=== PATIENT | female | born 1975 | race Two or more races ===

== ENCOUNTER 2017-08-25 16:56 | Emergency (ER) | payer OTHER, SELFPAY ==
[2017-08-25] MEDS ORDERED: Ondansetron 4 MG/2 ML SDV IVPUSH ONE (17:27)
[2017-08-25] MEDS ORDERED: Sodium Chloride 0.9% 1,000 ML IV ONE (17:27)
[2017-08-25] MEDS ORDERED: Ketorolac 30 MG/ML SDV IVPUSH ONE (17:27)
--- NOTE | 2017-08-25 17:29 | EDM.PDOC ---
<Christian Boston - Last Filed: 08/25/17 17:27> ED HPI GENERAL MEDICAL PROBLEM - General Chief Complaint: Abdominal Pain Stated Complaint: LOWER ABD PAIN Time Seen by Provider: 08/25/17 20:24 Source of Information: Reports: Patient - History of Present Illness INITIAL COMMENTS - FREE TEXT/NARRATIVE: HISTORY AND PHYSICAL: History of present illness: [Patient with left lower quadrant pain right 6 out of 10 nonradiating for 1 week increasing in severity some decreased appetite and nausea no vomiting fever chills sweats No chest pain shortness breath headache dizziness palpitation no bowel or urine symptoms ] Review of systems: As per history of present illness and below otherwise all systems reviewed and negative. Past medical history: As per history of present illness and as reviewed below otherwise noncontributory. Surgical history: As per history of present illness and as reviewed below otherwise noncontributory. Social history: No reported history of drug or alcohol abuse. Family history: As per history of present illness and as reviewed below otherwise noncontributory. Physical exam: HEENT: Atraumatic, normocephalic, pupils reactive, negative for conjunctival pallor or scleral icterus, mucous membranes moist, throat clear, neck supple, nontender, trachea midline. Lungs: Clear to auscultation, breath sounds equal bilaterally, chest nontender. Heart: S1S2, regular, negative for clicks, rubs, or JVD. Abdomen: Soft, nondistended, tender in left lower quadrant with deep palpation no guarding or rebound. Negative for masses or hepatosplenomegaly. Negative for costovertebral tenderness. Pelvis: Stable nontender. Genitourinary: Deferred. Rectal: Deferred. Extremities: Atraumatic, negative for cords or calf pain. Neurovascular unremarkable. Neuro: Awake, alert, oriented. Cranial nerves II through XII unremarkable. Cerebellum unremarkable. Motor and sensory unremarkable throughout. Exam nonfocal. Diagnostics: [CBC CMP UA lipase UA hCG CT abdomen pelvis with contrast ] Therapeutics: [Liter normal saline bolus Zofran 8 mg IV Toradol 30 mg IV ] Impression: [ abdominal pain ] Definitive disposition and diagnosis as appropriate pending reevaluation and review of above. - Related Data Allergies Allergy/AdvReac Type Severity Reaction Status Date / Time Penicillins Allergy Other Verified 02/29/16 19:15 Phenothiazines Allergy Other Verified 02/29/16 19:15 Home Meds: Home Meds Omeprazole 1 tab PO BID 02/10/16 [History] Ondansetron HCl [Zofran] 1 tab PO ASDIRECTED PRN 02/10/16 [History] Sertraline HCl 1 tab PO DAILY 02/10/16 [History] Acetaminophen/oxyCODONE [Percocet 325-5 MG] 2 tab PO Q4H PRN #60 tablet [Rx] Cyclobenzaprine [Flexeril] 5 mg PO TID PRN #30 tablet 03/02/16 [Rx] Omeprazole 20 mg PO BIDAC cap.cr 03/02/16 [Rx] Ondansetron [Zofran ODT] 4 mg PO Q4H PRN #30 tab.dis 03/02/16 [Rx] Polyethylene Glycol 3350 [MiraLAX] 17 gm PO DAILY #30 packet 03/02/16 [Rx] Past Medical History HEENT History: Reports: Sinusitis Cardiovascular History: Reports: None Respiratory History: Reports: None Other Respiratory History: had asthma as a child but outgrew it Gastrointestinal History: Reports: Gastritis, GERD, PUD, Other (See Below) Genitourinary History: Reports: None [employer] History: Reports: 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 History: Reports: Fracture Other 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 History: hx of fx thumb Neurological History: Reports: None Psychiatric History: Reports: Anxiety, Depression Endocrine/Metabolic History: Reports: Obesity/BMI 30+ Hematologic History: Reports: None Immunologic History: Reports: None Oncologic (Cancer) History: Reports: None Dermatologic History: Reports: None - Infectious Disease History Infectious Disease History: Reports: Chicken Pox, Measles - Past Surgical History Head Surgeries/Procedures: Reports: None HEENT Surgical History: Reports: Oral Surgery, Tonsillectomy Cardiovascular Surgical History: Reports: None Respiratory Surgical History: Reports: None Female Surgical History: Reports: Section Endocrine Surgical History: Reports: None Neurological Surgical History: Reports: None 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 Surgical History: Reports: None Oncologic Surgical History: Reports: None Dermatological Surgical History: Reports: None - History Comment History Comment: etoh "occasional" Social & Family History - Family History Family Medical History: Noncontributory - Tobacco Use Smoking Status *Q: Never Smoker Second Hand Smoke Exposure: No - Caffeine Use Caffeine Use: Reports: None - Alcohol Use Days Per Week of Alcohol Use: 1 Number of Drinks Per Day: 2 Total Drinks Per Week: 2 - Recreational Drug Use Recreational Drug Use: No Course - Vital Signs Last Recorded V/S: Last Vital Signs Temp 37.0 C 08/25/17 17:25 Pulse 97 08/25/17 17:25 Resp 18 08/25/17 17:25 BP 146/79 H 08/25/17 17:25 Pulse Ox 98 08/25/17 17:25 - Orders/Labs/Meds Orders: Active Orders 24 hr Category Date Time Status Abdomen Pelvis w Cont [CT] Stat Exams 08/25/17 17:29 Taken HCG QUALITATIVE,URINE [URCHEM] Stat Lab 08/25/17 18:24 Ordered UA W/MICROSCOPIC [URIN] Stat Lab 08/25/17 18:24 Ordered Labs: Laboratory Tests 08/25/17 08/25/17 08/25/17 Range/Units 17:31 17:31 17:31 WBC 8.39 (4.0-11.0) K/uL RBC 4.65 (4.30-5.90) M/uL Hgb 13.4 (12.0-16.0) g/dL Hct 40.2 (36.0-46.0) % MCV 86.5 (80.0-98.0) fL MCH 28.8 (27.0-32.0) pg MCHC 33.3 (31.0-37.0) g/dL RDW Std Deviation 41.6 (28.0-62.0) fl RDW Coeff of Tanvi 13 (11.0-15.0) % Plt Count 329 (150-400) K/uL MPV 8.10 (7.40-12.00) fL Neut % (Auto) 40.9 L (48.0-80.0) % Lymph % (Auto) 49.3 H (16.0-40.0) % [place] % (Auto) 7.2 (0.0-15.0) % Eos % (Auto) 2.0 (0.0-7.0) % Baso % (Auto) 0.6 (0.0-1.5) % Neut # (Auto) 3.4 (1.4-5.7) K/uL Lymph # (Auto) 4.1 H (0.6-2.4) K/uL [place] # (Auto) 0.6 (0.0-0.8) K/uL Eos # (Auto) 0.2 (0.0-0.7) K/uL Baso # (Auto) 0.1 (0.0-0.1) K/uL Nucleated RBC % 0.0 /100WBC Nucleated RBCs # 0 K/uL Sodium 140 (136-145) mmol/L Potassium 4.1 (3.5-5.1) mmol/L Chloride 104 (98-107) mmol/L Carbon Dioxide 27.5 (21.0-32.0) mmol/L BUN 11 (7.0-18.0) mg/dL Creatinine 0.8 (0.6-1.0) mg/dL Est Cr Clr Drug Dosing TNP Estimated GFR (MDRD) > 60.0 ml/min Glucose 95 (74-106) mg/dL Calcium 8.7 (8.5-10.1) mg/dL Total Bilirubin 0.3 (0.2-1.0) mg/dL AST 52 H (15-37) IU/L ALT 92 H (14-63) IU/L Alkaline Phosphatase 109 (46-116) U/L Troponin I < 0.050 (0.000-0.056) ng/mL Total Protein 8.0 (6.4-8.2) g/dL Albumin 3.8 (3.4-5.0) g/dL Globulin 4.2 H (2.0-3.5) g/dL Albumin/Globulin Ratio 0.9 L (1.3-2.8) Lipase 74 (73-393) U/L Urine Color Urine Appearance Urine pH (5.0-8.0) Ur Specific Gur[place] (1.001-1.035) Urine Protein (NEGATIVE) mg/dL Urine Glucose (UA) (NEGATIVE) mg/dL Urine Ketones (NEGATIVE) mg/dL Urine Occult Blood (NEGATIVE) Urine Nitrite (NEGATIVE) Urine Bilirubin (NEGATIVE) Urine Urobilinogen (<2.0) EU/dL Ur Leukocyte Esterase (NEGATIVE) Urine RBC (0-2/HPF) Urine WBC (0-5/HPF) Ur Epithelial Cells (NONE-FEW) Urine Bacteria (NEGATIVE) Urine HCG, Qual (NEGATIVE) 08/25/17 08/25/17 Range/Units 18:24 18:24 WBC (4.0-11.0) K/uL RBC (4.30-5.90) M/uL Hgb (12.0-16.0) g/dL Hct (36.0-46.0) % MCV (80.0-98.0) fL MCH (27.0-32.0) pg MCHC (31.0-37.0) g/dL RDW Std Deviation (28.0-62.0) fl RDW Coeff of Tanvi (11.0-15.0) % Plt Count (150-400) K/uL MPV (7.40-12.00) fL Neut % (Auto) (48.0-80.0) % Lymph % (Auto) (16.0-40.0) % [place] % (Auto) (0.0-15.0) % Eos % (Auto) (0.0-7.0) % Baso % (Auto) (0.0-1.5) % Neut # (Auto) (1.4-5.7) K/uL Lymph # (Auto) (0.6-2.4) K/uL [place] # (Auto) (0.0-0.8) K/uL Eos # (Auto) (0.0-0.7) K/uL Baso # (Auto) (0.0-0.1) K/uL Nucleated RBC % /100WBC Nucleated RBCs # K/uL Sodium (136-145) mmol/L Potassium (3.5-5.1) mmol/L Chloride (98-107) mmol/L Carbon Dioxide (21.0-32.0) mmol/L BUN (7.0-18.0) mg/dL Creatinine (0.6-1.0) mg/dL Est Cr Clr Drug Dosing Estimated GFR (MDRD) ml/min Glucose (74-106) mg/dL Calcium (8.5-10.1) mg/dL Total Bilirubin (0.2-1.0) mg/dL AST (15-37) IU/L ALT (14-63) IU/L Alkaline Phosphatase (46-116) U/L Troponin I (0.000-0.056) ng/mL Total Protein (6.4-8.2) g/dL Albumin (3.4-5.0) g/dL Globulin (2.0-3.5) g/dL Albumin/Globulin Ratio (1.3-2.8) Lipase (73-393) U/L Urine Color YELLOW Urine Appearance CLEAR Urine pH 6.0 (5.0-8.0) Ur Specific [place] 1.015 (1.001-1.035) Urine Protein NEGATIVE (NEGATIVE) mg/dL Urine Glucose (UA) NEGATIVE (NEGATIVE) mg/dL Urine Ketones NEGATIVE (NEGATIVE) mg/dL Urine Occult Blood NEGATIVE (NEGATIVE) Urine Nitrite NEGATIVE (NEGATIVE) Urine Bilirubin NEGATIVE (NEGATIVE) Urine Urobilinogen 0.2 (<2.0) EU/dL Ur Leukocyte Esterase SMALL (NEGATIVE) Urine RBC 0-1 (0-2/HPF) Urine WBC 0-1 (0-5/HPF) Ur Epithelial Cells RARE (NONE-FEW) Urine Bacteria RARE (NEGATIVE) Urine HCG, Qual NEGATIVE (NEGATIVE) Meds: Medications Discontinued Medications Generic Name Dose Route Start Last Admin Trade Name Freq PRN Reason Stop Dose Admin Sodium Chloride 1,000 mls @ 999 mls/hr 08/25/17 17:27 08/25/17 18:04 Normal Saline IV 08/25/17 18:27 999 mls/hr STAT ONE Administration Iopamidol 100 ml 08/25/17 19:09 08/25/17 19:11 Isovue Multipack-370 (76%) IVPUSH 08/25/17 19:10 100 ml ONETIME STA Administration Ketorolac Tromethamine 30 mg 08/25/17 17:27 08/25/17 18:04 Toradol IVPUSH 08/25/17 17:28 30 mg ONETIME ONE Administration Ondansetron HCl 8 mg 08/25/17 17:27 08/25/17 18:06 Zofran IVPUSH 08/25/17 17:28 8 mg ONETIME ONE Administration Ondansetron HCl Confirm 08/25/17 18:05 08/25/17 18:57 Zofran Administered 08/25/17 18:06 Not Given Dose 4 mg .ROUTE .STK-MED ONE Departure - Departure Disposition: Home, Self-Care 01 Clinical Impression: Abdominal pain Qualifiers: Abdominal location: right upper quadrant Qualified Code(s): R10.11 - Right upper quadrant pain - Discharge Information Referrals: PCP,None [Primary Care Provider] - Forms: ED Department Discharge Additional Instructions: The following information is given to patients seen in the emergency department who are being discharged to home. This information is to outline your options for follow-up care. We provide all patients seen in our emergency department with a follow-up referral. The need for follow-up, as well as the timing and circumstances, are variable depending upon the specifics of your emergency department visit. If you don't have a primary care physician on staff, we will provide you with a referral. We always advise you to contact your personal physician following an emergency department visit to inform them of the circumstance of the visit and for follow-up with them and/or the need for any referrals to a consulting specialist. The emergency department will also refer you to a specialist when appropriate. This referral assures that you have the opportunity for followup care with a specialist. All of these measure are taken in an effort to provide you with optimal care, which includes your followup. Under all circumstances we always encourage you to contact your private physician who remains a resource for coordinating your care. When calling for followup care, please make the office aware that this follow-up is from your recent emergency room visit. If for any reason you are refused follow-up, please contact the [facility] emergency department at and asked to speak to the emergency department charge nurse. [facility] Specialty Care - General Surgery Professional [address], [address] [place] [address] Follow-up primary medical doctor follow-up Gen. surgery above call to schedule appointment as needed as discussed and return as needed as discussed <Baldemar Ansari - Last Filed: 08/25/17 20:24> ED HPI GENERAL MEDICAL PROBLEM - History of Present Illness INITIAL COMMENTS - FREE TEXT/NARRATIVE: Patient's emergency department course has been unremarkable all of her diagnostics have been negative including CT of her abdomen and pelvis patient be discharged home with diagnosis of abdominal pain she was given general surgery for follow-up as well as her private medical doctor she's return as needed as discussed ED ROS GENERAL - Review of Systems Review Of Systems: ROS reveals no pertinent complaints other than HPI. ED EXAM, GENERAL - Physical Exam Exam: See Below (See dictation) Departure - Departure Time of Disposition: 20:23 Condition: Good
[2017-08-25] MEDS ORDERED: Ondansetron 4 MG/2 ML SDV ONE (18:05)
[2017-08-25 18:07] LABS: CHLORIDE,CL 104 mmol/L (98-107); SODIUM,NA 140 mmol/L (136-145)
[2017-08-25] MEDS ORDERED: Iopamidol 755 MG/ML 500 ML Multipack Bottle IVPUSH STA (19:09)
[2017-08-25 20:52] VITALS: BP 132/74
--- NOTE | 2017-08-26 08:22 | CT ---
EXAM DATE: 08/25/17 PATIENT'S AGE: 42 [facility]: [facility] Facility: [place], [place] Site . Site : [id number] Study: CT Abdomen/Pelvis WITH [id number]/13/2018 7:10:46 PM Ordering Physician: Tri Gonzales Final Report: INDICATION: LLQ pain, nausea, gallbladder removed TECHNIQUE: CT abdomen and pelvis acquired with IV contrast. COMPARISON: None FINDINGS: Lower chest: Unremarkable. Liver: Diffuse fatty infiltration of the liver. Spleen: Unremarkable. Pancreas: Unremarkable. Gallbladder and bile ducts: Cholecystectomy changes Kidneys: Unremarkable. Adrenal glands: Unremarkable. GI tract: Unremarkable. Appendix is normal. Vascular structures: Negative. No sign of aneurysm. Lymph nodes: Unremarkable. Miscellaneous: Unremarkable. No free air or significant free fluid. Pelvic Organs: Unremarkable. Bones: Unremarkable for age. IMPRESSION: No acute abnormality of the abdomen and pelvis. Dictated by Jac Dela Cruz MD @ 08/25/2017 7:24:41 PM Please note that all CT scans at this facility use dose modulation, iterative reconstruction, and/or weight-based dosing when appropriate to reduce radiation dose to as low as reasonably achievable. Dictated by: Jac Dela Cruz MD @ 08/25/2017 19:24:54 (Electronic Signature) Report Signed by Proxy. [facility]
== END 2017-08-25 20:40 | disposition home or self-care (01) ==
LOC: MW.ED 16:56
DX: R10.814 Left lower quadrant abdominal tenderness (principal); R10.11 Right upper quadrant pain; E66.9 Obesity, unspecified; Z88.0 Allergy status to penicillin; Z88.8 Allergy status to other drugs, medicaments and biological substances; Z79.899 Other long term (current) drug therapy
CPT/HCPCS: 36415; 74177; 80053; 81001; 81025; 83690; 84484; 85025; J1885; J2405; J7040; Q9967; 96361; 96374; 96375; 99283; 99284-25

== ENCOUNTER 2018-11-08 02:24 | Emergency (ER) | payer SELFPAY ==
[2018-11-08 02:38] VITALS: BP 157/91
[2018-11-08] MEDS ORDERED: Benzocaine 20% Topical Spray UD MUCMEM ONE (02:51)
[2018-11-08] MEDS ORDERED: Lidocaine 2% Viscous Solution 15 ML Cup PO ONE (02:51)
[2018-11-08 03:24] LABS: CHLORIDE,CL 104 mmol/L (98-107); SODIUM,NA 141 mmol/L (136-145)
--- NOTE | 2018-11-08 04:10 | EDM.PDOC ---
ED HPI GENERAL MEDICAL PROBLEM - General Chief Complaint: ENT Problem Stated Complaint: SINUS INFECTION Time Seen by Provider: 11/08/18 04:10 - History of Present Illness INITIAL COMMENTS - FREE TEXT/NARRATIVE: HISTORY AND PHYSICAL: History of present illness: Patient's 43-year-old white female presents with concern of sinus congestion and pain dental pain and bilateral ear pain she denies fevers chills nausea vomiting or other complaints Review of systems: As per history of present illness and below otherwise all systems reviewed and negative. Past medical history: As per history of present illness and as reviewed below otherwise noncontributory. Surgical history: As per history of present illness and as reviewed below otherwise noncontributory. Social history: No reported history of drug or alcohol abuse. Family history: As per history of present illness and as reviewed below otherwise noncontributory. Physical exam: HEENT: Atraumatic, normocephalic, pupils reactive, negative for conjunctival pallor or scleral icterus, mucous membranes moist, throat clear, neck supple, nontender, trachea midline. Tenderness to percussion over maxillary and frontal sinusitis Lungs: Clear to auscultation, breath sounds equal bilaterally, chest nontender. Heart: S1S2, regular, negative for clicks, rubs, or JVD. Abdomen: Soft, nondistended, nontender. Negative for masses or hepatosplenomegaly. Negative for costovertebral tenderness. Pelvis: Stable nontender. Genitourinary: Deferred. Rectal: Deferred. Extremities: Atraumatic, negative for cords or calf pain. Neurovascular unremarkable. Neuro: Awake, alert, oriented. Cranial nerves II through XII unremarkable. Cerebellum unremarkable. Motor and sensory unremarkable throughout. Exam nonfocal. Diagnostics: None Therapeutics: None Impression: #1 dentalgia #2 otalgia #3 sinusitis Definitive disposition and diagnosis as appropriate pending reevaluation and review of above. head/face/teeth Pain Score (Numeric/FACES): 10 - Related Data Allergies Allergy/AdvReac Type Severity Reaction Status Date / Time codeine Allergy Abdominal Verified 11/08/18 02:34 Pain Penicillins Allergy Other Verified 11/08/18 02:33 Phenothiazines Allergy Other Verified 11/08/18 02:33 Home Meds: Home Meds Sertraline HCl 25 mg PO DAILY 02/18/18 [History] metFORMIN [Glucophage] 500 mg BID 02/18/18 [History] Past Medical History HEENT History: Reports: Sinusitis Cardiovascular History: Reports: None Respiratory History: Reports: None Other Respiratory History: had asthma as a child but outgrew it Gastrointestinal History: Reports: Gastritis, GERD, PUD, Other (See Below) Genitourinary History: Reports: None [employer] LEAD History: Reports: 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 History: Reports: Fracture Other 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 History: hx of fx thumb Neurological History: Reports: None Psychiatric History: Reports: Anxiety, Depression Endocrine/Metabolic History: Reports: Obesity/BMI 30+ Hematologic History: Reports: None Immunologic History: Reports: None Oncologic (Cancer) History: Reports: None Dermatologic History: Reports: None - Infectious Disease History Infectious Disease History: Reports: Chicken Pox - Past Surgical History Head Surgeries/Procedures: Reports: None HEENT Surgical History: Reports: Oral Surgery, Tonsillectomy Cardiovascular Surgical History: Reports: None Respiratory Surgical History: Reports: None GI Surgical History: Reports: Appendectomy, Cholecystectomy Female Surgical History: Reports: Section Endocrine Surgical History: Reports: None Neurological Surgical History: Reports: None 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 Surgical History: Reports: None Oncologic Surgical History: Reports: None Dermatological Surgical History: Reports: None - History Comment History Comment: etoh "occasional" Social & Family History - Family History Family Medical History: Noncontributory - Tobacco Use Smoking Status *Q: Never Smoker - Caffeine Use Caffeine Use: Reports: None - Recreational Drug Use Recreational Drug Use: No ED ROS GENERAL - Review of Systems Review Of Systems: ROS reveals no pertinent complaints other than HPI. ED EXAM, GENERAL - Physical Exam Exam: See Below Course - Vital Signs Last Recorded V/S: Last Vital Signs Temp 36.4 C 11/08/18 02:35 Pulse 80 11/08/18 02:35 Resp 16 11/08/18 02:35 BP 157/91 H 11/08/18 02:35 Pulse Ox 97 11/08/18 02:35 - Orders/Labs/Meds Labs: Laboratory Tests 11/08/18 11/08/18 Range/Units 02:57 02:57 WBC 7.16 (4.0-11.0) K/uL RBC 4.28 L (4.30-5.90) M/uL Hgb 12.4 (12.0-16.0) g/dL Hct 38.1 (36.0-46.0) % MCV 89.0 (80.0-98.0) fL MCH 29.0 (27.0-32.0) pg MCHC 32.5 (31.0-37.0) g/dL RDW Std Deviation 42.3 (28.0-62.0) fl RDW Coeff of Tanvi 13 (11.0-15.0) % Plt Count 276 (150-400) K/uL MPV 8.20 (7.40-12.00) fL Neut % (Auto) 30.5 L (48.0-80.0) % Lymph % (Auto) 59.1 H (16.0-40.0) % Johnson % (Auto) 6.0 (0.0-15.0) % Eos % (Auto) 3.8 (0.0-7.0) % Baso % (Auto) 0.6 (0.0-1.5) % Neut # (Auto) 2.2 (1.4-5.7) K/uL Lymph # (Auto) 4.2 H (0.6-2.4) K/uL Johnson # (Auto) 0.4 (0.0-0.8) K/uL Eos # (Auto) 0.3 (0.0-0.7) K/uL Baso # (Auto) 0.0 (0.0-0.1) K/uL Nucleated RBC % 0.0 /100WBC Nucleated RBCs # 0 K/uL Sodium 141 (136-145) mmol/L Potassium 3.9 (3.5-5.1) mmol/L Chloride 104 (98-107) mmol/L Carbon Dioxide 29.6 (21.0-32.0) mmol/L BUN 15 (7.0-18.0) mg/dL Creatinine 0.8 (0.6-1.0) mg/dL Est Cr Clr Drug Dosing 76.55 mL/min Estimated GFR (MDRD) > 60.0 ml/min Glucose 125 H (74-106) mg/dL Calcium 8.8 (8.5-10.1) mg/dL Total Bilirubin 0.2 (0.2-1.0) mg/dL AST 25 (15-37) IU/L ALT 59 (14-63) IU/L Alkaline Phosphatase 89 (46-116) U/L Total Protein 6.8 (6.4-8.2) g/dL Albumin 3.4 (3.4-5.0) g/dL Globulin 3.4 (2.6-4.0) g/dL Albumin/Globulin Ratio 1.0 (0.9-1.6) Meds: Medications Discontinued Medications Generic Name Dose Route Start Last Admin Trade Name Elmo PRN Reason Stop Dose Admin Benzocaine 2 each 11/08/18 02:51 11/08/18 03:04 Hurricaine One 20% MUCMEM 11/08/18 02:52 2 each ONETIME ONE Administration Lidocaine HCl 15 ml 11/08/18 02:51 11/08/18 03:04 Xylocaine 2% Viscous PO 11/08/18 02:52 15 ml ONETIME ONE Administration Departure - Departure Time of Disposition: 04:08 Disposition: Home, Self-Care 01 Condition: Good Clinical Impression: Sinusitis, Otalgia, Dentalgia - Discharge Information Referrals: PCP,None [Primary Care Provider] - Additional Instructions: The following information is given to patients seen in the emergency department who are being discharged to home. This information is to outline your options for follow-up care. We provide all patients seen in our emergency department with a follow-up referral. The need for follow-up, as well as the timing and circumstances, are variable depending upon the specifics of your emergency department visit. If you don't have a primary care physician on staff, we will provide you with a referral. We always advise you to contact your personal physician following an emergency department visit to inform them of the circumstance of the visit and for follow-up with them and/or the need for any referrals to a consulting specialist. The emergency department will also refer you to a specialist when appropriate. This referral assures that you have the opportunity for followup care with a specialist. All of these measure are taken in an effort to provide you with optimal care, which includes your followup. Under all circumstances we always encourage you to contact your private physician who remains a resource for coordinating your care. When calling for followup care, please make the office aware that this follow-up is from your recent emergency room visit. If for any reason you are refused follow-up, please contact the [facility] emergency department at and asked to speak to the emergency department charge nurse. Bactrim as prescribed follow-up primary medical doctor return as needed as discussed follow-up dentist as discussed
== END 2018-11-08 04:27 | disposition home or self-care (01) ==
LOC: MW.ED 02:24
DX: J32.9 Chronic sinusitis, unspecified (principal); F41.9 Anxiety disorder, unspecified; F32.9 Major depressive disorder, single episode, unspecified; Z88.5 Allergy status to narcotic agent; Z88.0 Allergy status to penicillin; Z88.8 Allergy status to other drugs, medicaments and biological substances; Z79.899 Other long term (current) drug therapy; Z79.84 Long term (current) use of oral hypoglycemic drugs
CPT/HCPCS: 36415; 80053; 85025; 99284; A9270; 99282

== ENCOUNTER 2019-08-03 12:14 | Emergency (ER) | payer SELFPAY ==
[2019-08-03] MEDS ORDERED: predniSONE 20 MG Tab PO ONE (12:38)
[2019-08-03] MEDS ORDERED: diphenhydrAMINE 50 MG Cap PO ONE (12:38)
[2019-08-03] MEDS ORDERED: Ondansetron 4 MG Tab PO ONE (12:51)
--- NOTE | 2019-08-03 12:51 | EDM.PDOC ---
ED HPI GENERAL MEDICAL PROBLEM - General Chief Complaint: Allergic Reaction Stated Complaint: ALLERGIC REACTION Time Seen by Provider: 08/03/19 12:15 Source of Information: Reports: Patient History Limitations: Reports: No Limitations - History of Present Illness INITIAL COMMENTS - FREE TEXT/NARRATIVE: 44-year-old female with history of allergic reaction to penicillin presents with pruritus to bilateral hands and fingers, left ear, along with nausea after handling her sons penicillin medication. She denies shortness of breath, throat closing sensation, wheezing. Symptoms started today. She also feels like she may have a panic attack. Denies chest pain, shortness of breath, abdominal pain. ROS: A 10-point review of systems, other than pertinent positives and negatives as stated per HPI, is otherwise negative PHYSICAL EXAM General: AOx4, GCS = 15, No distress, anxious HEENT: dry mucous membrane Skin: Vitiligo noted to the left face. Neck: supple, no meningismus, no Kernig or Brudzinski Cardiac: S1S2 RRR Respiratory: CTAB, no crackles or rales, no wheezing Abdomen: Soft, nontender, no rebound or guarding, nondistended, no pulsatile mass. Back: nontender 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: NVI distally, no deformity Neuro: No focal deficits, CN 2 - 12 WNL. MEDICAL DECISION MAKING: I reviewed the patients past medical records, lab and radiographic findings. I discussed the case with family members. My differential diagnosis included: Allergic reaction, panic attack. Generalized Pain Score (Numeric/FACES): 5 - Related Data Allergies Allergy/AdvReac Type Severity Reaction Status Date / Time codeine Allergy Abdominal Verified 08/03/19 12:19 Pain Penicillins Allergy Other Verified 08/03/19 12:19 Phenothiazines Allergy Other Verified 08/03/19 12:19 Home Meds: Home Meds metFORMIN [Glucophage] 500 mg PO BID 02/18/18 [History] PARoxetine HCL [Paroxetine HCl] 40 mg PO DAILY 08/03/19 [History] Past Medical History HEENT History: Reports: Sinusitis Cardiovascular History: Reports: None Respiratory History: Reports: None Other Respiratory History: had asthma as a child but outgrew it Gastrointestinal History: Reports: Gastritis, GERD, PUD Genitourinary History: Reports: None 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: 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 History: Reports: Fracture Other 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 History: hx of fx thumb Neurological History: Reports: None Psychiatric History: Reports: Anxiety, Depression Endocrine/Metabolic History: Reports: Diabetes, Type II, Obesity/BMI 30+ Hematologic History: Reports: None Immunologic History: Reports: None Oncologic (Cancer) History: Reports: None Dermatologic History: Reports: None - Infectious Disease History Infectious Disease History: Reports: None - Past Surgical History Head Surgeries/Procedures: Reports: None HEENT Surgical History: Reports: Oral Surgery, Tonsillectomy Cardiovascular Surgical History: Reports: None Respiratory Surgical History: Reports: None GI Surgical History: Reports: Appendectomy, Cholecystectomy Female Surgical History: Reports: Section Endocrine Surgical History: Reports: None Neurological Surgical History: Reports: None 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 Surgical History: Reports: None Oncologic Surgical History: Reports: None Dermatological Surgical History: Reports: None - History Comment History Comment: etoh "occasional" Social & Family History - Family History Family Medical History: Noncontributory - Tobacco Use Smoking Status *Q: Never Smoker Second Hand Smoke Exposure: No - Caffeine Use Caffeine Use: Reports: Soda, Tea - Recreational Drug Use Recreational Drug Use: No ED ROS ALLERGIC REACTION - Review of Systems Review Of Systems: See Below ED EXAM GENERAL NO PERIP PULSE - Physical Exam Exam: See Below Course - Vital Signs Last Recorded V/S: Last Vital Signs Temp 97.7 F 08/03/19 12:21 Pulse 93 08/03/19 12:21 Resp 19 08/03/19 12:21 BP 151/92 H 08/03/19 12:21 Pulse Ox 96 08/03/19 12:21 - Orders/Labs/Meds Orders: Active Orders 24 hr Category Date Time Status diphenhydrAMINE [Benadryl] Med 08/03/19 12:38 Once 50 mg PO ONETIME ONE predniSONE Med 08/03/19 12:38 Once 60 mg PO ONETIME ONE - Re-Assessments/Exams Free Text/Narrative Re-Assessment/Exam: 08/03/19 12:52 -after treatments and a prolonged observation period in the ER, the patient improved clinically and is stable for discharge. I performed a repeat examination and the patient has not demonstrated any new abnormal findings. Patient exhibits normal vital signs and has exhibited a normal gait. I advised the patient to return to the ER for reevaluation if symptoms worsened , and to follow up with their PCP within 2-3 days. Departure - Departure Time of Disposition: 12:40 Disposition: Home, Self-Care 01 Condition: Good Clinical Impression: Allergic reaction caused by a drug - Discharge Information Instructions: Allergies, Adult Referrals: Lorin Rangel DO [Primary Care Provider] - 1 Week Forms: ED Department Discharge Additional Instructions: The following information is given to patients seen in the emergency department who are being discharged to home. This information is to outline your options for follow-up care. We provide all patients seen in our emergency department with a follow-up referral. The need for follow-up, as well as the timing and circumstances, are variable depending upon the specifics of your emergency department visit. If you don't have a primary care physician on staff, we will provide you with a referral. We always advise you to contact your personal physician following an emergency department visit to inform them of the circumstance of the visit and for follow-up with them and/or the need for any referrals to a consulting specialist. The emergency department will also refer you to a specialist when appropriate. This referral assures that you have the opportunity for follow-up care with a specialist. All of these measure are taken in an effort to provide you with optimal care, which includes your follow-up. Under all circumstances we always encourage you to contact your private physician who remains a resource for coordinating your care. When calling for follow-up care, please make the office aware that this follow-up is from your recent emergency room visit. If for any reason you are refused follow-up, please contact the [facility] Emergency Department at and asked to speak to the emergency department charge nurse. Sepsis Event Note - Evaluation Sepsis Screening Result: No Definite Risk - Focused Exam Vital Signs: Vital Signs Temp Pulse Resp BP Pulse Ox 08/03/19 12:21 97.7 F 93 19 151/92 H 96 Date Exam was Performed: 08/03/19 Time Exam was Performed: 12:39 - My Orders Last 24 Hours: My Active Orders 08/03/19 12:38 diphenhydrAMINE [Benadryl] 50 mg PO ONETIME ONE predniSONE 60 mg PO ONETIME ONE - Assessment/Plan Last 24 Hours: My Active Orders 08/03/19 12:38 diphenhydrAMINE [Benadryl] 50 mg PO ONETIME ONE predniSONE 60 mg PO ONETIME ONE
[2019-08-03 13:49] VITALS: BP 173/86; PULSE 80
== END 2019-08-03 13:48 | disposition home or self-care (01) ==
LOC: MW.ED 12:14
DX: L29.9 Pruritus, unspecified (principal); T36.0X5A Adverse effect of penicillins, initial encounter; F41.9 Anxiety disorder, unspecified; F32.9 Major depressive disorder, single episode, unspecified; E11.9 Type 2 diabetes mellitus without complications; E66.9 Obesity, unspecified; Z68.34 Body mass index [BMI] 34.0-34.9, adult; Z88.0 Allergy status to penicillin; Z88.5 Allergy status to narcotic agent; Z88.8 Allergy status to other drugs, medicaments and biological substances; Z79.84 Long term (current) use of oral hypoglycemic drugs
CPT/HCPCS: 99283; A9270; 99282

== ENCOUNTER 2019-10-03 11:33 | Emergency (ER) | payer SELFPAY ==
[2019-10-03] MEDS ORDERED: Sodium Chloride 0.9% 10 ML Syringe FLUSH PRN (11:41)
[2019-10-03] MEDS ORDERED: diphenhydrAMINE 50 MG/ML SDV IVPUSH ONE (11:41)
[2019-10-03] MEDS ORDERED: methylPREDNISolone Sodium Succinate 125 MG/2 ML SDV IVPUSH ONE (11:41)
[2019-10-03] MEDS ORDERED: Sodium Chloride 0.9% 2.5 ML Syringe FLUSH PRN (11:41)
[2019-10-03] MEDS ORDERED: Famotidine 20 MG/2 ML SDV IVPUSH ONE (11:41)
[2019-10-03] MEDS ORDERED: Sodium Chloride 0.9% 1,000 ML IV ONE (11:41)
[2019-10-03] MEDS ORDERED: EPINEPHrine 1 MG/1 ML Amp IM ONE (11:42)
--- NOTE | 2019-10-03 11:46 | EDM.PDOC ---
ED HPI GENERAL MEDICAL PROBLEM - General Stated Complaint: TONGUE SWELLING Time Seen by Provider: 10/03/19 11:41 - History of Present Illness INITIAL COMMENTS - FREE TEXT/NARRATIVE: History of present illness: 44-year-old female presenting with throat tightness and swelling and skin itching, possibly developing a rash. The patient reports symptoms started 30 minutes prior to arrival here. She was at rest speaking to someone and had not eaten or drank anything abnormal out of the ordinary. Has not taken any new medications. No exposure to new substances, no toxic exposures, no other new exposures to anything that she recalls. She does report she had some lower abdominal pain but is currently on her period and thinks this may be related to menstrual cramping. She is tearful and very anxious that she feels her throat is closing. Review of systems: As per history of present illness and below otherwise all systems reviewed and negative. Past medical history: As per history of present illness and as reviewed below otherwise noncontribut ory. Diabetes Surgical history: As per history of present illness and as reviewed below otherwise noncontributory. Cholecystectomy Social history: No reported history of drug or alcohol abuse. No tobacco Family history: As per history of present illness and as reviewed below otherwise noncontributory. Physical exam: GEN: Moderate distress, well appearing HEENT: Atraumatic, normocephalic, mucous membranes moist, tongue appears slightly enlarged, airway is patent Neck: supple, nontender, trachea midline. Lungs: No respiratory distress. Heart: Mildly tachycardic Abdomen: Soft, nondistended, minimally tender lower abdomen. Back: nontender Extremities: Atraumatic. Neurovascularly intact. Neuro: Awake, alert, oriented. Neuro Exam nonfocal. Skin: warm, dry, possible mild rash/urticaria over the arms Diagnostics: Labs, EKG, UA Therapeutics: Epinephrine IM, Benadryl, Pepcid, methylprednisolone, IV fluids MDM: Patient with throat swelling/mucous membrane involvement and itching and possible rash, meets 2 criteria for anaphylaxis, therefore treated with epinephrine IM as well secondary symptomatic allergic reaction medications. Impression: [] Plan: [] Definitive disposition and diagnosis as appropriate pending reevaluation and review of above. - Related Data Allergies Allergy/AdvReac Type Severity Reaction Status Date / Time codeine Allergy Abdominal Verified 10/03/19 11:44 Pain Penicillins Allergy Other Verified 10/03/19 11:44 Phenothiazines Allergy Other Verified 10/03/19 11:44 Home Meds: Home Meds metFORMIN [Glucophage] 500 mg PO BID 02/18/18 [History] PARoxetine HCL [Paroxetine HCl] 40 mg PO DAILY 08/03/19 [History] EPINEPHrine [Epinephrine] 0.3 mg IM ONETIME PRN #2 applic 10/03/19 [Rx] predniSONE [Prednisone] 60 mg PO DAILY 5 Days #10 tablet 10/03/19 [Rx] Past Medical History HEENT History: Reports: Sinusitis Cardiovascular History: Reports: None Respiratory History: Reports: None Other Respiratory History: had asthma as a child but outgrew it Gastrointestinal History: Reports: Gastritis, GERD, PUD Genitourinary History: Reports: 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 History: Reports: Fracture Other 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 History: hx of fx thumb Neurological History: Reports: None Psychiatric History: Reports: Anxiety, Depression Endocrine/Metabolic History: Reports: Diabetes, Type II, Obesity/BMI 30+ Hematologic History: Reports: None Immunologic History: Reports: None Oncologic (Cancer) History: Reports: None Dermatologic History: Reports: None - Infectious Disease History Infectious Disease History: Reports: None - Past Surgical History Head Surgeries/Procedures: Reports: None HEENT Surgical History: Reports: Oral Surgery, Tonsillectomy Cardiovascular Surgical History: Reports: None Respiratory Surgical History: Reports: None GI Surgical History: Reports: Appendectomy, Cholecystectomy Female Surgical History: Reports: Section Endocrine Surgical History: Reports: None Neurological Surgical History: Reports: None 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 Surgical History: Reports: None Oncologic Surgical History: Reports: None Dermatological Surgical History: Reports: None - History Comment History Comment: etoh "occasional" Social & Family History - Family History Family Medical History: Noncontributory - Caffeine Use Caffeine Use: Reports: Soda, Tea ED ROS ALLERGIC REACTION - Review of Systems Review Of Systems: See Below (See HPI) ED EXAM GENERAL NO PERIP PULSE - Physical Exam Exam: See Below (See HPI) EKG INTERPRETATION EKG Interpretation Comments: performed 11:58 AM, sinus rhythm, rate 76, no acute ischemia no STEMI, No arrhythmia, Course - Vital Signs Last Recorded V/S: Last Vital Signs Temp 98.6 F 10/03/19 11:39 Pulse 83 10/03/19 15:34 Resp 15 10/03/19 15:34 BP 127/74 10/03/19 15:34 Pulse Ox 97 10/03/19 15:34 - Orders/Labs/Meds Orders: Active Orders 24 hr Category Date Time Status EKG Documentation Completion [RC] STAT Care 10/03/19 11:41 Active Saline Lock Insert [OM.PC] Stat Oth 10/03/19 11:41 Ordered Labs: Laboratory Tests 10/03/19 10/03/19 10/03/19 Range/Units 11:45 12:05 12:07 WBC 9.65 (4.0-11.0) K/uL RBC 5.06 (4.30-5.90) M/uL Hgb 14.1 (12.0-16.0) g/dL Hct 43.5 (36.0-46.0) % MCV 86.0 (80.0-98.0) fL MCH 27.9 (27.0-32.0) pg MCHC 32.4 (31.0-37.0) g/dL RDW Std Deviation 41.6 (28.0-62.0) fl RDW Coeff of Tanvi 13 (11.0-15.0) % Plt Count 380 (150-400) K/uL MPV 8.70 (7.40-12.00) fL Neut % (Auto) 30.8 L (48.0-80.0) % Lymph % (Auto) 63.5 H (16.0-40.0) % [place] % (Auto) 4.4 (0.0-15.0) % Eos % (Auto) 1.0 (0.0-7.0) % Baso % (Auto) 0.3 (0.0-1.5) % Neut # (Auto) 3.0 (1.4-5.7) K/uL Lymph # (Auto) 6.1 H (0.6-2.4) K/uL Kenton # (Auto) 0.4 (0.0-0.8) K/uL Eos # (Auto) 0.1 (0.0-0.7) K/uL Baso # (Auto) 0.0 (0.0-0.1) K/uL Nucleated RBC % 0.0 /100WBC Nucleated RBCs # 0 K/uL Sodium 141 (136-145) mmol/L Potassium 3.3 L (3.5-5.1) mmol/L Chloride 102 (98-107) mmol/L Carbon Dioxide 29.2 (21.0-32.0) mmol/L BUN 12 (7.0-18.0) mg/dL Creatinine 0.8 (0.6-1.0) mg/dL Est Cr Clr Drug Dosing 89.08 mL/min Estimated GFR (MDRD) > 60.0 ml/min Glucose 121 H (74-106) mg/dL Calcium 8.4 L (8.5-10.1) mg/dL Total Bilirubin 0.4 (0.2-1.0) mg/dL AST 53 H (15-37) IU/L ALT 112 H (14-63) IU/L Alkaline Phosphatase 90 (46-116) U/L Total Protein 7.4 (6.4-8.2) g/dL Albumin 3.7 (3.4-5.0) g/dL Globulin 3.7 (2.6-4.0) g/dL Albumin/Globulin Ratio 1.0 (0.9-1.6) HCG, Qual NEGATIVE (NEG) Urine Color Urine Appearance Urine pH (5.0-8.0) Ur Specific [place] (1.001-1.035) Urine Protein (NEGATIVE) mg/dL Urine Glucose (UA) (NEGATIVE) mg/dL Urine Ketones (NEGATIVE) mg/dL Urine Occult Blood (NEGATIVE) Urine Nitrite (NEGATIVE) Urine Bilirubin (NEGATIVE) Urine Urobilinogen (<2.0) EU/dL Ur Leukocyte Esterase (NEGATIVE) Urine RBC (0-2/HPF) Urine WBC (0-5/HPF) Ur Epithelial Cells (NONE-FEW) Urine Bacteria (NEGATIVE) 10/03/19 Range/Units 12:50 WBC (4.0-11.0) K/uL RBC (4.30-5.90) M/uL Hgb (12.0-16.0) g/dL Hct (36.0-46.0) % MCV (80.0-98.0) fL MCH (27.0-32.0) pg MCHC (31.0-37.0) g/dL RDW Std Deviation (28.0-62.0) fl RDW Coeff of Tanvi (11.0-15.0) % Plt Count (150-400) K/uL MPV (7.40-12.00) fL Neut % (Auto) (48.0-80.0) % Lymph % (Auto) (16.0-40.0) % Kenton % (Auto) (0.0-15.0) % Eos % (Auto) (0.0-7.0) % Baso % (Auto) (0.0-1.5) % Neut # (Auto) (1.4-5.7) K/uL Lymph # (Auto) (0.6-2.4) K/uL Kenton # (Auto) (0.0-0.8) K/uL Eos # (Auto) (0.0-0.7) K/uL Baso # (Auto) (0.0-0.1) K/uL Nucleated RBC % /100WBC Nucleated RBCs # K/uL Sodium (136-145) mmol/L Potassium (3.5-5.1) mmol/L Chloride (98-107) mmol/L Carbon Dioxide (21.0-32.0) mmol/L BUN (7.0-18.0) mg/dL Creatinine (0.6-1.0) mg/dL Est Cr Clr Drug Dosing mL/min Estimated GFR (MDRD) ml/min Glucose (74-106) mg/dL Calcium (8.5-10.1) mg/dL Total Bilirubin (0.2-1.0) mg/dL AST (15-37) IU/L ALT (14-63) IU/L Alkaline Phosphatase (46-116) U/L Total Protein (6.4-8.2) g/dL Albumin (3.4-5.0) g/dL Globulin (2.6-4.0) g/dL Albumin/Globulin Ratio (0.9-1.6) HCG, Qual (NEG) Urine Color YELLOW Urine Appearance CLEAR Urine pH 6.0 (5.0-8.0) Ur Specific [place] 1.015 (1.001-1.035) Urine Protein NEGATIVE (NEGATIVE) mg/dL Urine Glucose (UA) NEGATIVE (NEGATIVE) mg/dL Urine Ketones 40 H (NEGATIVE) mg/dL Urine Occult Blood LARGE H (NEGATIVE) Urine Nitrite NEGATIVE (NEGATIVE) Urine Bilirubin NEGATIVE (NEGATIVE) Urine Urobilinogen 0.2 (<2.0) EU/dL Ur Leukocyte Esterase NEGATIVE (NEGATIVE) Urine RBC 3-5 (0-2/HPF) Urine WBC 0-1 (0-5/HPF) Ur Epithelial Cells RARE (NONE-FEW) Urine Bacteria RARE (NEGATIVE) Meds: Medications Discontinued Medications Generic Name Dose Route Start Last Admin Trade Name Freq PRN Reason Stop Dose Admin Diphenhydramine HCl 50 mg 10/03/19 11:41 10/03/19 11:51 Benadryl IVPUSH 10/03/19 11:42 50 mg ONETIME ONE Administration Epinephrine HCl 0.3 mg 10/03/19 11:42 10/03/19 11:53 Adrenalin IM 10/03/19 11:43 0.3 mg ONETIME ONE Administration Famotidine 20 mg 10/03/19 11:41 10/03/19 11:51 Pepcid IVPUSH 10/03/19 11:42 20 mg ONETIME ONE Administration Sodium Chloride 1,000 mls @ 999 mls/hr 10/03/19 11:41 10/03/19 11:54 Normal Saline IV 10/03/19 12:41 999 mls/hr .Bolus ONE Administration Methylprednisolone Sodium Succinate 125 mg 10/03/19 11:41 10/03/19 11:54 Solu-Medrol IVPUSH 10/03/19 11:42 125 mg ONETIME ONE Administration Sodium Chloride 10 ml 10/03/19 11:41 Saline Flush FLUSH ASDIRECTED PRN Keep Vein Open Sodium Chloride 2.5 ml 10/03/19 11:41 Saline Flush FLUSH ASDIRECTED PRN Keep Vein Open - Re-Assessments/Exams Free Text/Narrative Re-Assessment/Exam: 10/03/19 12:02 I have reassessed the patient. She is resting comfortably and in no acute distress. No longer tearful. She does report that she feels less itchy and that her tongue is not as swollen as before though not completely resolved yet. 10/03/19 12:57 On reassessment, the patient is resting comfortably. She reports that she is feeling much better. 10/03/19 15:20 I have reassessed the patient. She is resting comfortably now and in no acute distress. She does not feel any tongue swelling or itching at this time. Stable for discharge. EpiPen and prednisone prescriptions were sent to the patient's pharmacy. Discussed the importance of keeping epinephrine with her at all times, and discussed instructions on use of EpiPen. Patient voiced understanding. She does now recall that she was wearing a new T-shirt that was some kind of a T-shirt that had been bleached, and she is wondering if that could have caused this acute reaction, although she does report it has been washed 4 times prior to her wearing it. She is totally symptom-free at this time. Departure - Departure Time of Disposition: 15:21 Disposition: Home, Self-Care 01 Clinical Impression: Anaphylaxis - Discharge Information Prescriptions: EPINEPHrine [Epinephrine] 0.3 mg IM ONETIME PRN #2 applic PRN Reason: Other predniSONE [Prednisone] 60 mg PO DAILY 5 Days #10 tablet Instructions: How to Use an Auto-Injector Pen, Anaphylactic Reaction, Adult, [id number], Allergies, Adult Referrals: PCP,None [Primary Care Provider] - Additional Instructions: If you develop severe worsening allergic reaction symptoms like you had today, including difficulty breathing, throat swelling, tongue swelling, throat tightness, please use the autoinjector EpiPen/epinephrine autoinjector immediately. If you do need to use this autoinjector, please call 911 and return to the emergency department immediately. Please take Benadryl every 6-8 hours for the next 1 to 2 days. Please take the prednisone 60 mg for the next 3 days. Follow-up with the primary care listed below. You may need referral to an food editor. The following information is given to patients seen in the emergency department who are being discharged to home. This information is to outline your options for follow-up care. We provide all patients seen in our emergency department with a follow-up referral. The need for follow-up, as well as the timing and circumstances, are variable depending upon the specifics of your emergency department visit. If you don't have a primary care physician on staff, we will provide you with a referral. We always advise you to contact your personal physician following an emergency department visit to inform them of the circumstance of the visit and for follow-up with them and/or the need for any referrals to a consulting specialist. The emergency department will also refer you to a specialist when appropriate. This referral assures that you have the opportunity for follow-up care with a specialist. All of these measure are taken in an effort to provide you with optimal care, which includes your follow-up. Under all circumstances we always encourage you to contact your private physician who remains a resource for coordinating your care. When calling for follow-up care, please make the office aware that this follow-up is from your recent emergency room visit. If for any reason you are refused follow-up, please contact the [facility] Emergency Department at and asked to speak to the emergency department charge nurse. [facility] - [facility] [address] [place] [id number] [facility] [address] [place] [id number] Sepsis Event Note (ED) - Evaluation Sepsis Screening Result: No Definite Risk - Focused Exam Vital Signs: Vital Signs Temp Pulse Resp BP Pulse Ox 10/03/19 15:34 83 15 127/74 97 10/03/19 12:32 107/60 10/03/19 12:26 77 16 96 10/03/19 11:47 70 18 169/66 H 94 L 10/03/19 11:39 98.6 F 89 20 193/99 H 94 L - My Orders Last 24 Hours: My Active Orders 10/03/19 11:41 EKG Documentation Completion [RC] STAT Saline Lock Insert [OM.PC] Stat - Assessment/Plan Last 24 Hours: My Active Orders 10/03/19 11:41 EKG Documentation Completion [RC] STAT Saline Lock Insert [OM.PC] Stat
[2019-10-03 12:48] LABS: BLOOD UREA NITROGEN,BUN 12 mg/dL (7.0-18.0); CARBON DIOXIDE,CO2 29.2 mmol/L (21.0-32.0); CHLORIDE,CL 102 mmol/L (98-107); GLUCOSE RANDOM 121 mg/dL (74-106); POTASSIUM,K 3.3 mmol/L (3.5-5.1); SODIUM,NA 141 mmol/L (136-145)
[2019-10-03 15:35] VITALS: BP 127/74; PULSE 83
== END 2019-10-03 15:36 | disposition home or self-care (01) ==
LOC: MW.ED 11:33
DX: T78.2XXA Anaphylactic shock, unspecified, initial encounter (principal); E11.9 Type 2 diabetes mellitus without complications; F41.9 Anxiety disorder, unspecified; F32.9 Major depressive disorder, single episode, unspecified; E66.9 Obesity, unspecified; Z68.34 Body mass index [BMI] 34.0-34.9, adult; Z88.5 Allergy status to narcotic agent; Z88.0 Allergy status to penicillin; Z88.8 Allergy status to other drugs, medicaments and biological substances; Z79.84 Long term (current) use of oral hypoglycemic drugs; Z79.899 Other long term (current) drug therapy
CPT/HCPCS: 36415; 80053; 81001; 84703; 85025; 93005; 96361; 96372; 96374; 96375; 99285-25; J0171; J1200; J2930; J3490; J7030

== ENCOUNTER 2019-11-13 11:43 | Emergency (ER) | payer SELFPAY ==
--- NOTE | 2019-11-13 11:55 | EDM.PDOC ---
ED HPI GENERAL MEDICAL PROBLEM - General Stated Complaint: ALLERGIC REACTION Time Seen by Provider: 11/13/19 11:52 Source of Information: Reports: Patient History Limitations: Reports: No Limitations - History of Present Illness INITIAL COMMENTS - FREE TEXT/NARRATIVE: HISTORY AND PHYSICAL: History of present illness: Patient is a 44-year-old female who presents to the emergency room with complaints of hives and itching of skin. She states over the past several months she has had allergic reactions to unknown source. These have ranged in severity. Last month she was seen in the emergency room for an allergic reaction and was given a prescription for an EpiPen which she did not fill. She states she cannot afford this prescription. This morning she woke up with itching to her upper and lower extremities which progressively have gotten worse. She took some generic loratadine which helped symptoms but was concerned that this would turn into a more severe allergic reaction and came to the e mergency room for evaluation. Patient denies any fever, chills, headache, change in vision, syncope or near syncope. Denies any chest pain, back pain, shortness of breath or cough. No difficulty with speech, swallowing, or tongue swelling/airway involvement. Denies any abdominal pain, nausea, vomiting, diarrhea, constipation or dysuria. Review of systems: As per history of present illness and below otherwise all systems reviewed and negative. Past medical history: As per history of present illness and as reviewed below otherwise noncontributory. Surgical history: As per history of present illness and as reviewed below otherwise noncontributory. Social history: See social history for further information Family history: As per history of present illness and as reviewed below otherwise noncontributory. Physical exam: General: Well developed and well nourished 44-year-old female. Alert and orientated x 3. Nontoxic in appearance and in no acute distress. Vital signs are stable and have been reviewed by me. Nursing notes were reviewed. HEENT: Atraumatic, normocephalic, pupils equal and reactive bilaterally, negative for conjunctival pallor or scleral icterus, mucous membranes moist, TMs normal bilaterally, throat clear, neck supple, nontender, trachea midline. No drooling or trismus noted. No meningeal signs. No hot potato voice noted. Lungs: Clear to auscultation, breath sounds equal bilaterally, chest nontender. Normal work of breathing, no accessory muscles used. Heart: S1S2, regular rate and rhythm without overt murmur Abdomen: Soft, nondistended, nontender. Negative for masses or hepatosplenomegaly. Negative for costovertebral tenderness. Skin: Faint hives are noted to lower extremities and bilateral forearms. Intact, warm, dry. No lesions or rashes noted. Hematologic: No petechiae or purpra. Mucosa appropriate color and normal nail bed color and refill. Extremities: Atraumatic, moves all extremities per self without difficulty or deficits, negative for cords or calf pain. Neurovascular unremarkable. Neuro: Awake, alert, oriented. Cranial nerves II through XII unremarkable. Cerebellum unremarkable. Motor and sensory unremarkable throughout. Exam n onfocal. Notes: Patient does not appear in any acute distress. Her main complaint is pruritus to her upper and lower extremities. She has no new exposures and hasn't eaten anything yet today, except her home medications. Will give PO Benadryl and IM Solumedrol. After an hour of observation, patients itching/hives have resolved. Appropriate for d/c to home. Dr Park, attending MD, suggested rx for Zyrtec 10mg TID x 2 weeks. We discussed signs and symptoms that would prompt them to return to the Emergency Department. Medication, follow up and supportive care measures were reviewed and discussed. Voices understanding and is agreeable to plan of care. Denies any further questions or concerns at this time. Diagnostics: None Therapeutics: Benadryl, Solu-Medrol Prescription: Zyrtec Impression: Dermatitis Plan: 1. Avoid triggers. Continue to monitor for possible exposures/triggers/foods. 2. While symptomatic continue to routinely take Benadryl 50mg every 4-6 hours and Zantac 150mg twice daily. 3. Carry your Epi-Pen with you at all times. Use in the case of an emergency and call 911 and/or present to the ER. 4. You may use topical calamine lotion, cool tempid oatmeal baths, Aveeno bath/lotions. 5. Consider formal allergy testing once you have completed your medications and have improved. 6. Please follow up with your Primary care doctor. Return to the ED as needed and as discussed. Definitive disposition and diagnosis as appropriate pending reevaluation and review of above. - Related Data Allergies Allergy/AdvReac Type Severity Reaction Status Date / Time codeine Allergy Abdominal Verified 11/13/19 11:48 Pain Penicillins Allergy Other Verified 11/13/19 11:48 Phenothiazines Allergy Other Verified 11/13/19 11:48 Home Meds: Home Meds metFORMIN [Glucophage] 500 mg PO BID 02/18/18 [History] PARoxetine HCL [Paroxetine HCl] 40 mg PO DAILY 08/03/19 [History] EPINEPHrine [Epinephrine] 0.3 mg IM ONETIME PRN #2 applic 10/03/19 [Rx] predniSONE [Prednisone] 60 mg PO DAILY 5 Days #10 tablet 10/03/19 [Rx] Cetirizine [ZyrTEC] 10 mg PO TID #42 tab 11/13/19 [Rx] Past Medical History HEENT History: Reports: Sinusitis Cardiovascular History: Reports: None Respiratory History: Reports: None Other Respiratory History: had asthma as a child but outgrew it Gastrointestinal History: Reports: Gastritis, GERD, PUD Genitourinary History: Reports: None [employer]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: 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 History: Reports: Fracture Other 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 History: hx of fx thumb Neurological History: Reports: None Psychiatric History: Reports: Anxiety, Depression Endocrine/Metabolic History: Reports: Diabetes, Type II, Obesity/BMI 30+ Hematologic History: Reports: None Immunologic History: Reports: None Oncologic (Cancer) History: Reports: None Dermatologic History: Reports: None - Infectious Disease History Infectious Disease History: Reports: None - Past Surgical History Head Surgeries/Procedures: Reports: None HEENT Surgical History: Reports: Oral Surgery, Tonsillectomy Cardiovascular Surgical History: Reports: None Respiratory Surgical History: Reports: None GI Surgical History: Reports: Appendectomy, Cholecystectomy Female Surgical History: Reports: Section Endocrine Surgical History: Reports: None Neurological Surgical History: Reports: None 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 Surgical History: Reports: None Oncologic Surgical History: Reports: None Dermatological Surgical History: Reports: None - History Comment History Comment: etoh "occasional" Social & Family History - Family History Family Medical History: Noncontributory - Tobacco Use Smoking Status *Q: Never Smoker Second Hand Smoke Exposure: No - Caffeine Use Caffeine Use: Reports: Tea - Recreational Drug Use Recreational Drug Use: No ED ROS GENERAL - Review of Systems Review Of Systems: Comprehensive ROS is negative, except as noted in HPI. ED EXAM, SKIN/RASH Exam: See Below (See dictation) Course - Vital Signs Last Recorded V/S: Last Vital Signs Temp 97.4 F 11/13/19 11:48 Pulse 90 11/13/19 11:48 Resp 18 11/13/19 11:48 BP 131/72 11/13/19 11:48 Pulse Ox 96 11/13/19 11:48 - Orders/Labs/Meds Meds: Medications Discontinued Medications Generic Name Dose Route Start Last Admin Trade Name Elmo PRN Reason Stop Dose Admin Diphenhydramine HCl 50 mg 11/13/19 11:56 11/13/19 11:58 Benadryl IVPUSH 11/13/19 11:57 Not Given ONETIME ONE Diphenhydramine HCl 50 mg 11/13/19 11:57 11/13/19 12:05 Benadryl PO 11/13/19 11:58 50 mg ONETIME ONE Administration Methylprednisolone Sodium Succinate 125 mg 11/13/19 11:56 11/13/19 11:58 Solu-Medrol IVPUSH 11/13/19 11:57 Not Given ONETIME ONE Methylprednisolone Sodium Succinate 125 mg 11/13/19 11:56 11/13/19 12:05 Solu-Medrol IM 11/13/19 11:57 125 mg ONETIME ONE Administration Departure - Departure Time of Disposition: 12:43 Disposition: Home, Self-Care 01 Clinical Impression: Dermatitis - Discharge Information Prescriptions: Cetirizine [ZyrTEC] 10 mg PO TID #42 tab Instructions: Contact Dermatitis, [id number] Referrals: PCP,None [Primary Care Provider] - Forms: ED Department Discharge Additional Instructions: The following information is given to patients seen in the emergency department who are being discharged to home. This information is to outline your options for follow-up care. We provide all patients seen in our emergency department with a follow-up referral. The need for follow-up, as well as the timing and circumstances, are variable depending upon the specifics of your emergency department visit. If you don't have a primary care physician on staff, we will provide you with a referral. We always advise you to contact your personal physician following an emergency department visit to inform them of the circumstance of the visit and for follow-up with them and/or the need for any referrals to a consulting specialist. The emergency department will also refer you to a specialist when appropriate. This referral assures that you have the opportunity for follow-up care with a specialist. All of these measure are taken in an effort to provide you with optimal care, which includes your follow-up. Under all circumstances we always encourage you to contact your private physician who remains a resource for coordinating your care. When calling for follow-up care, please make the office aware that this follow-up is from your recent emergency room visit. If for any reason you are refused follow-up, please contact the [facility] Emergency Department at and asked to speak to the emergency department charge nurse. [facility] [address] [place] [address] [facility] [address] [place] [id number] Thank you for choosing the [facility] emergency department in [place] for your medical needs today. It was a pleasure caring for you. Today you were seen in the emergency department for hives and itching. 1. Avoid triggers. Continue to monitor for possible exposures/triggers/foods. 2. While symptomatic continue to routinely take Benadryl 50mg every 4-6 hours and Zantac 150mg twice daily. 3. Carry your Epi-Pen with you at all times. Use in the case of an emergency and call 911 and/or present to the ER. 4. You may use topical calamine lotion, cool tempid oatmeal baths, Aveeno bath/lotions. 5. Consider formal allergy testing once you have completed your medications and have improved. 6. Please follow up with your Primary care doctor. Return to the ED as needed and as discussed. Sepsis Event Note (ED) - Evaluation Sepsis Screening Result: No Definite Risk - Focused Exam Vital Signs: Vital Signs Temp Pulse Resp BP Pulse Ox 11/13/19 11:48 97.4 F 90 18 131/72 96
[2019-11-13] MEDS ORDERED: methylPREDNISolone Sodium Succinate 125 MG/2 ML SDV IM ONE (11:56)
[2019-11-13] MEDS ORDERED: diphenhydrAMINE 50 MG/ML SDV IVPUSH ONE (11:56)
[2019-11-13] MEDS ORDERED: methylPREDNISolone Sodium Succinate 125 MG/2 ML SDV IVPUSH ONE (11:56)
[2019-11-13] MEDS ORDERED: diphenhydrAMINE 50 MG Cap PO ONE (11:57)
[2019-11-13 13:01] VITALS: BP 127/50; PULSE 84
== END 2019-11-13 13:01 | disposition home or self-care (01) ==
LOC: MW.ED 11:43
DX: L30.9 Dermatitis, unspecified (principal); E11.9 Type 2 diabetes mellitus without complications; F32.9 Major depressive disorder, single episode, unspecified; F41.9 Anxiety disorder, unspecified; E66.9 Obesity, unspecified; Z88.0 Allergy status to penicillin; Z88.5 Allergy status to narcotic agent; Z88.8 Allergy status to other drugs, medicaments and biological substances; Z79.899 Other long term (current) drug therapy; Z68.36 Body mass index [BMI] 36.0-36.9, adult; Z79.84 Long term (current) use of oral hypoglycemic drugs
CPT/HCPCS: 96372; 99282; A9270; J2930; 99283

== ENCOUNTER 2020-01-30 03:07 | Emergency (ER) | payer SELFPAY ==
[2020-01-30] MEDS ORDERED: methylPREDNISolone Sodium Succinate 125 MG/2 ML SDV IM ONE (03:27)
[2020-01-30] MEDS ORDERED: diphenhydrAMINE 50 MG Cap PO ONE (03:27)
--- NOTE | 2020-01-30 03:28 | EDM.PDOC ---
ED HPI GENERAL MEDICAL PROBLEM - General Chief Complaint: Bite:Animal, Insect Stated Complaint: ALLERGIC REACTION Time Seen by Provider: 01/30/20 03:10 - History of Present Illness INITIAL COMMENTS - FREE TEXT/NARRATIVE: History of present illness: [] Patient woke up just prior to arrival with a constellation of symptoms she has experienced before. She attributes it to an allergy to something that she thinks is an insect that may bite her when she is asleep. She was here in October with similar complaints. When she has the swelling and itching in her face and around her ear she has abdominal cramps. When antihistamines and steroids are used to get rid of these her symptoms improve and her belly pain goes away. Not worked her up for an vascular or autoimmune disease. She has not been worked up for allergies seriously. She has been on Zyrtec 10 mg 3 times daily for 2 weeks and last time she was here and she got better. She does have a family doctor and follows up. She does not have any urinary tract symptoms or systemic signs of infection. Does have some swelling of her hands. Review of systems: As per history of present illness and below otherwise all systems reviewed and negative. Past medical history: As per history of present illness and as reviewed below otherwise noncontributory. Surgical history: As per history of present illness and as reviewed below otherwise noncontributory. Social history: No reported history of drug or alcohol abuse. Family history: As per history of present illness and as reviewed below otherwise noncontributory. Physical exam: Constitutional - well developed, well-nourished and in no acute distress HEENT -there is edema around the left zygomatic arch and the left lateral periorbital soft tissues of the face with some erythema of the external ear on the left side. Normocephalic, no evidence of trauma - external nose and mouth normal - no mass in neck and no JVD - mucosae moist EYES - full EOM, PERRL, no icterus - no evidence of inflammation, injection, or drainage Respiratory - no respiratory distress, equal bilateral expansion, lungs clear to auscultation and no abnormal lung sounds Cardiovascular - Regular Rhythm with S1 and S2 appreciated and no murmur, gallop or rub. GI - abdomen soft without distension or organomegaly - no guard or rebound 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 no gross deformity of long bones or joints - no tenderness, swelling or edema Neurologic - Alert and oriented times four - CN II-XII grossly intact - motor sensory and coordination symmetrically normal Psychiatric - appropriate mood and affect with normal thought content Hematologic - No petechiae or purpura - mucosa appropriate color and sclera not pale - normal nail bed color and refill Integument - no rash or evidence of trauma - normal turgor Diagnostics: [] Therapeutics: [] Impression: [] Plan: [] Definitive disposition and diagnosis as appropriate pending reevaluation and review of above. Abdominalpain Pain Score (Numeric/FACES): 8 - Related Data Allergies Allergy/AdvReac Type Severity Reaction Status Date / Time codeine Allergy Abdominal Verified 01/30/20 03:13 Pain Penicillins Allergy Other Verified 01/30/20 03:13 Phenothiazines Allergy Other Verified 01/30/20 03:13 Home Meds: Home Meds metFORMIN [Glucophage] 500 mg PO BID 02/18/18 [History] Cetirizine [ZyrTEC] 10 mg PO DAILY 01/30/20 [History] Cetirizine [ZyrTEC] 10 mg PO TID #42 tab 01/30/20 [Rx] methylPREDNISolone [Medrol Dose Pack] 4 mg PO DAILY #21 tab 01/30/20 [Rx] Past Medical History HEENT History: Reports: Sinusitis Cardiovascular History: Reports: None Respiratory History: Reports: None Other Respiratory History: had asthma as a child but outgrew it Gastrointestinal History: Reports: Gastritis, GERD, PUD Genitourinary History: Reports: 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: 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 History: Reports: Fracture Other 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 History: hx of fx thumb Neurological History: Reports: None Psychiatric History: Reports: Anxiety, Depression Endocrine/Metabolic History: Reports: Diabetes, Type II, Obesity/BMI 30+ Hematologic History: Reports: None Immunologic History: Reports: None Oncologic (Cancer) History: Reports: None Dermatologic History: Reports: None - Infectious Disease History Infectious Disease History: Reports: Chicken Pox, Measles - Past Surgical History Head Surgeries/Procedures: Reports: None HEENT Surgical History: Reports: Oral Surgery, Tonsillectomy Cardiovascular Surgical History: Reports: None Respiratory Surgical History: Reports: None GI Surgical History: Reports: Appendectomy, Cholecystectomy Female Surgical History: Reports: Section Endocrine Surgical History: Reports: None Neurological Surgical History: Reports: None 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 Surgical History: Reports: None Oncologic Surgical History: Reports: None Dermatological Surgical History: Reports: None - History Comment History Comment: etoh "occasional" Social & Family History - Family History Family Medical History: No Pertinent Family History - Caffeine Use Caffeine Use: Reports: None - Recreational Drug Use Recreational Drug Use: No ED ROS GENERAL - Review of Systems Review Of Systems: Comprehensive ROS is negative, except as noted in HPI. ED EXAM, ANIMAL BITE - Physical Exam Exam: See Below Text/Narrative:: My physical exam is in the HPI Course - Vital Signs Text/Narrative:: 0357 hrs. better but stomach a little sore. Wants to go home go to bed and talk to her doctor later Last Recorded V/S: Last Vital Signs Temp 36.3 C 01/30/20 03:14 Pulse 106 H 01/30/20 03:14 Resp 18 01/30/20 03:14 BP 146/96 H 01/30/20 03:14 Pulse Ox 96 01/30/20 03:14 - Orders/Labs/Meds Meds: Medications Discontinued Medications Generic Name Dose Route Start Last Admin Trade Name Elmo PRN Reason Stop Dose Admin Diphenhydramine HCl 50 mg 01/30/20 03:27 01/30/20 03:32 Benadryl PO 01/30/20 03:28 50 mg ONETIME ONE Administration Methylprednisolone Sodium Succinate 125 mg 01/30/20 03:27 01/30/20 03:32 Solu-Medrol IM 01/30/20 03:28 125 mg ONETIME ONE Administration Departure - Departure Time of Disposition: 03:58 Disposition: Home, Self-Care 01 Condition: Good Clinical Impression: Allergic reaction, Edema of face - Discharge Information Prescriptions: methylPREDNISolone [Medrol Dose Pack] 4 mg PO DAILY #21 tab Cetirizine [ZyrTEC] 10 mg PO TID #42 tab Instructions: Allergies, Adult, [id number] Referrals: Lorin Rangel DO [Primary Care Provider] - Forms: ED Department Discharge Additional Instructions: The prednisone or methylprednisolone may raise your blood sugar so please keep close track of it. Follow-up with your doctor to find out why he had these recurrent effects. [facility] [address] [place] [id number] [facility] [address] [place] [address] The following information is given to patients seen in the emergency department who are being discharged to home. This information is to outline your options for follow-up care. We provide all patients seen in our emergency department with a follow-up referral. The need for follow-up, as well as the timing and circumstances, are variable depending upon the specifics of your emergency department visit. If you don't have a primary care physician on staff, we will provide you with a referral. We always advise you to contact your personal physician following an emergency department visit to inform them of the circumstance of the visit and for follow-up with them and/or the need for any referrals to a consulting specialist. The emergency department will also refer you to a specialist when appropriate. This referral assures that you have the opportunity for follow-up care with a specialist. All of these measure are taken in an effort to provide you with optimal care, which includes your follow-up. Under all circumstances we always encourage you to contact your private physician who remains a resource for coordinating your care. When calling for follow-up care, please make the office aware that this follow-up is from your recent emergency room visit. If for any reason you are refused follow-up, please contact the [facility] Emergency Department at and asked to speak to the emergency department charge nurse. Sepsis Event Note (ED) - Evaluation Sepsis Screening Result: No Definite Risk - Focused Exam Vital Signs: Vital Signs Temp Pulse Resp BP Pulse Ox 01/30/20 03:14 36.3 C 106 H 18 146/96 H 96
[2020-01-30 04:13] VITALS: BP 106/65; PULSE 85
== END 2020-01-30 04:00 | disposition home or self-care (01) ==
LOC: MW.ED 03:07
DX: T78.3XXA Angioneurotic edema, initial encounter (principal); E11.9 Type 2 diabetes mellitus without complications; E66.9 Obesity, unspecified; Z68.34 Body mass index [BMI] 34.0-34.9, adult; Z88.5 Allergy status to narcotic agent; Z88.0 Allergy status to penicillin; Z88.8 Allergy status to other drugs, medicaments and biological substances
CPT/HCPCS: 96372; 99283; A9270; J2930; 99282

== ENCOUNTER 2020-03-03 12:32 | Emergency (ER) | payer SELFPAY ==
--- NOTE | 2020-03-03 12:55 | EDM.PDOC ---
ED HPI GENERAL MEDICAL PROBLEM - General Chief Complaint: Allergic Reaction Stated Complaint: ALLERGIC REACTION Time Seen by Provider: 03/03/20 12:44 - History of Present Illness INITIAL COMMENTS - FREE TEXT/NARRATIVE: History of present illness: [] Patient began to have the symptoms that she associates with allergy 20 minutes ago. This includes a swelling feeling about her face and itching about her face as well as abdominal pain. It responds to steroids and antihistamines. She took Benadryl today. The swelling and itching is gone down rather quickly compared to her usual. The abdominal pain is worse. It is a diffuse vague abdominal pain. Is associated with a little bit of loose stool recently. She has no nausea vomiting or fever. It is constant nothing makes it better or worse. Is aware of these recurre nt visits and symptoms for which she has been treated multiple times in the emergency department. He says she is allergic to dust mites and house dust. He says she needs to see an metal stud framer and she has not had those arrangements made yet. Review of systems: As per history of present illness and below otherwise all systems reviewed and negative. Past medical history: As per history of present illness and as reviewed below otherwise noncontributory. Surgical history: As per history of present illness and as reviewed below otherwise noncontributory. Social history: No reported history of drug or alcohol abuse. Family history: As per history of present illness and as reviewed below otherwise noncontributory. Physical exam: Constitutional - well developed, well-nourished and in no acute distress HEENT - normocephalic, no evidence of trauma - external nose and mouth normal - no mass in neck and no JVD - mucosae moist EYES - full EOM, PERRL, no icterus - no evidence of inflammation, injection, or drainage Respiratory - no respiratory distress, equal bilateral expansion, lungs clear to auscultation and no abnormal lung sounds Cardiovascular - Regular Rhythm with S1 and S2 appreciated and no murmur, gallop or rub. GI - abdomen soft without distension or organomegaly - normal bowel sounds - no guard or rebound 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 no gross deformity of long bones or joints - no tenderness, swelling or edema Neurologic - Alert and oriented times four - CN II-XII grossly intact - motor sensory and coordination symmetrically normal Psychiatric - appropriate mood and affect with normal thought content Hematologic - No petechiae or purpura - mucosa appropriate color and sclera not pale - normal nail bed color and refill Integument - no rash or evidence of trauma - normal turgor Diagnostics: [] Therapeutics: [] Impression: [] Plan: [] Definitive disposition and diagnosis as appropriate pending reevaluation and review of above. Lower Abdominal Pain Score (Numeric/FACES): 8 - Related Data Allergies Allergy/AdvReac Type Severity Reaction Status Date / Time codeine Allergy Abdominal Verified 03/03/20 12:39 Pain Penicillins Allergy Other Verified 03/03/20 12:39 Phenothiazines Allergy Other Verified 03/03/20 12:39 Home Meds: Home Meds metFORMIN [Glucophage] 500 mg PO BID 02/18/18 [History] Cetirizine [ZyrTEC] 10 mg PO DAILY 01/30/20 [History] methylPREDNISolone [Medrol Dose Pack] 4 mg PO DAILY #21 tab 03/03/20 [Rx] Past Medical History HEENT History: Reports: Sinusitis Cardiovascular History: Reports: None Respiratory History: Reports: None Other Respiratory History: had asthma as a child but outgrew it Gastrointestinal History: Reports: Gastritis, GERD, PUD Genitourinary History: Reports: None 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: 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 History: Reports: Fracture Other 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 History: hx of fx thumb Neurological History: Reports: None Psychiatric History: Reports: Anxiety, Depression Endocrine/Metabolic History: Reports: Diabetes, Type II, Obesity/BMI 30+ Hematologic History: Reports: None Immunologic History: Reports: None Oncologic (Cancer) History: Reports: None Dermatologic History: Reports: None - Infectious Disease History Infectious Disease History: Reports: Chicken Pox, Measles - Past Surgical History Head Surgeries/Procedures: Reports: None HEENT Surgical History: Reports: Oral Surgery, Tonsillectomy Cardiovascular Surgical History: Reports: None Respiratory Surgical History: Reports: None GI Surgical History: Reports: Appendectomy, Cholecystectomy Female Surgical History: Reports: Section Endocrine Surgical History: Reports: None Neurological Surgical History: Reports: None 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 Surgical History: Reports: None Oncologic Surgical History: Reports: None Dermatological Surgical History: Reports: None - History Comment History Comment: etoh "occasional" Social & Family History - Family History Family Medical History: No Pertinent Family History - Caffeine Use Caffeine Use: Reports: None ED ROS ALLERGIC REACTION - Review of Systems Review Of Systems: Comprehensive ROS is negative, except as noted in HPI. ED EXAM GENERAL NO PERIP PULSE - Physical Exam Exam: See Below Text/Narrative:: My physical exam is in the HPI Course - Vital Signs Text/Narrative:: 1435 hrs. the patient's pain is 0. Last Recorded V/S: Last Vital Signs Temp 36.8 C 03/03/20 13:58 Pulse 78 03/03/20 13:58 Resp 18 03/03/20 13:58 BP 132/63 03/03/20 13:58 Pulse Ox 98 03/03/20 13:58 - Orders/Labs/Meds Labs: Laboratory Tests 03/03/20 03/03/20 03/03/20 Range/Units 13:07 13:07 13:40 WBC 6.53 (4.0-11.0) K/uL RBC 4.47 (4.30-5.90) M/uL Hgb 12.2 (12.0-16.0) g/dL Hct 38.1 (36.0-46.0) % MCV 85.2 (80.0-98.0) fL MCH 27.3 (27.0-32.0) pg MCHC 32.0 (31.0-37.0) g/dL RDW Std Deviation 40.0 (28.0-62.0) fl RDW Coeff of Tanvi 13 (11.0-15.0) % Plt Count 361 (150-400) K/uL MPV 8.20 (7.40-12.00) fL Neut % (Auto) 48.1 (48.0-80.0) % Lymph % (Auto) 41.0 H (16.0-40.0) % [place] % (Auto) 8.7 (0.0-15.0) % Eos % (Auto) 1.7 (0.0-7.0) % Baso % (Auto) 0.5 (0.0-1.5) % Neut # (Auto) 3.1 (1.4-5.7) K/uL Lymph # (Auto) 2.7 H (0.6-2.4) K/uL [place] # (Auto) 0.6 (0.0-0.8) K/uL Eos # (Auto) 0.1 (0.0-0.7) K/uL Baso # (Auto) 0.0 (0.0-0.1) K/uL Nucleated RBC % 0.0 /100WBC Nucleated RBCs # 0 K/uL Sodium 140 (136-145) mmol/L Potassium 3.7 (3.5-5.1) mmol/L Chloride 104 (98-107) mmol/L Carbon Dioxide 25.9 (21.0-32.0) mmol/L BUN 8 (7.0-18.0) mg/dL Creatinine 0.8 (0.6-1.0) mg/dL Est Cr Clr Drug Dosing 78.30 mL/min Estimated GFR (MDRD) > 60.0 ml/min Glucose 97 (74-106) mg/dL Calcium 8.6 (8.5-10.1) mg/dL Total Bilirubin 0.4 (0.2-1.0) mg/dL AST 22 (15-37) IU/L ALT 33 (14-63) IU/L Alkaline Phosphatase 86 (46-116) U/L Total Protein 6.9 (6.4-8.2) g/dL Albumin 3.2 L (3.4-5.0) g/dL Globulin 3.7 (2.6-4.0) g/dL Albumin/Globulin Ratio 0.9 (0.9-1.6) Lipase 43 L (73-393) U/L Urine Color Cancelled Urine Appearance Cancelled Urine pH Cancelled Ur Specific [place] Cancelled Urine Protein Cancelled Urine Glucose (UA) Cancelled Urine Ketones Cancelled Urine Occult Blood Cancelled Urine Nitrite Cancelled Urine Bilirubin Cancelled Urine Ictotest Cancelled Urine Urobilinogen Cancelled Ur Leukocyte Esterase Cancelled 03/03/20 Range/Units 13:45 WBC (4.0-11.0) K/uL RBC (4.30-5.90) M/uL Hgb (12.0-16.0) g/dL Hct (36.0-46.0) % MCV (80.0-98.0) fL MCH (27.0-32.0) pg MCHC (31.0-37.0) g/dL RDW Std Deviation (28.0-62.0) fl RDW Coeff of Tanvi (11.0-15.0) % Plt Count (150-400) K/uL MPV (7.40-12.00) fL Neut % (Auto) (48.0-80.0) % Lymph % (Auto) (16.0-40.0) % [place] % (Auto) (0.0-15.0) % Eos % (Auto) (0.0-7.0) % Baso % (Auto) (0.0-1.5) % Neut # (Auto) (1.4-5.7) K/uL Lymph # (Auto) (0.6-2.4) K/uL [place] # (Auto) (0.0-0.8) K/uL Eos # (Auto) (0.0-0.7) K/uL Baso # (Auto) (0.0-0.1) K/uL Nucleated RBC % /100WBC Nucleated RBCs # K/uL Sodium (136-145) mmol/L Potassium (3.5-5.1) mmol/L Chloride (98-107) mmol/L Carbon Dioxide (21.0-32.0) mmol/L BUN (7.0-18.0) mg/dL Creatinine (0.6-1.0) mg/dL Est Cr Clr Drug Dosing mL/min Estimated GFR (MDRD) ml/min Glucose (74-106) mg/dL Calcium (8.5-10.1) mg/dL Total Bilirubin (0.2-1.0) mg/dL AST (15-37) IU/L ALT (14-63) IU/L Alkaline Phosphatase (46-116) U/L Total Protein (6.4-8.2) g/dL Albumin (3.4-5.0) g/dL Globulin (2.6-4.0) g/dL Albumin/Globulin Ratio (0.9-1.6) Lipase (73-393) U/L Urine Color YELLOW Urine Appearance CLEAR Urine pH 6.0 Ur Specific [place] <= 1.005 Urine Protein NEGATIVE Urine Glucose (UA) NEGATIVE Urine Ketones NEGATIVE Urine Occult Blood NEGATIVE Urine Nitrite NEGATIVE Urine Bilirubin NEGATIVE Urine Ictotest Urine Urobilinogen 0.2 Ur Leukocyte Esterase NEGATIVE Meds: Medications Discontinued Medications Generic Name Dose Route Start Last Admin Trade Name Freq PRN Reason Stop Dose Admin Diphenhydramine HCl 25 mg 03/03/20 12:59 03/03/20 13:06 Benadryl PO 03/03/20 13:00 25 mg ONETIME ONE Administration Methylprednisolone Sodium Succinate 125 mg 03/03/20 12:57 03/03/20 13:06 Solu-Medrol IM 03/03/20 12:58 125 mg ONETIME ONE Administration Departure - Departure Time of Disposition: 14:35 Disposition: Home, Self-Care 01 Condition: Good Clinical Impression: Allergy Abdominal pain Qualifiers: Abdominal location: right upper quadrant Qualified Code(s): R10.11 - Right upper quadrant pain - Discharge Information Instructions: Abdominal Pain, Adult, [id number] Forms: ED Department Discharge Additional Instructions: Benadryl 25 mg 3 times a day for 3 days. [facility] [address] [place] [id number] [facility] [address] [place] [id number] The following information is given to patients seen in the emergency department who are being discharged to home. This information is to outline your options for follow-up care. We provide all patients seen in our emergency department with a follow-up referral. The need for follow-up, as well as the timing and circumstances, are variable depending upon the specifics of your emergency department visit. If you don't have a primary care physician on staff, we will provide you with a referral. We always advise you to contact your personal physician following an emergency department visit to inform them of the circumstance of the visit and for follow-up with them and/or the need for any referrals to a consulting specialist. The emergency department will also refer you to a specialist when appropriate. This referral assures that you have the opportunity for follow-up care with a specialist. All of these measure are taken in an effort to provide you with optimal care, which includes your follow-up. Under all circumstances we always encourage you to contact your private physician who remains a resource for coordinating your care. When calling for follow-up care, please make the office aware that this follow-up is from your recent emergency room visit. If for any reason you are refused follow-up, please contact the [facility] Emergency Department at and asked to speak to the emergency department charge nurse. Sepsis Event Note (ED) - Evaluation Sepsis Screening Result: No Definite Risk - Focused Exam Vital Signs: Vital Signs Temp Pulse Resp BP Pulse Ox 03/03/20 13:58 36.8 C 78 18 132/63 98 03/03/20 13:32 80 18 135/93 H 96 03/03/20 12:42 37.3 C 85 22 H 113/94 H 96
[2020-03-03] MEDS ORDERED: methylPREDNISolone Sodium Succinate 125 MG/2 ML SDV IM ONE (12:57)
[2020-03-03] MEDS ORDERED: diphenhydrAMINE 25 MG Cap PO ONE (12:59)
[2020-03-03 13:36] LABS: BLOOD UREA NITROGEN,BUN 8 mg/dL (7.0-18.0); CARBON DIOXIDE,CO2 25.9 mmol/L (21.0-32.0); CHLORIDE,CL 104 mmol/L (98-107); GLUCOSE RANDOM 97 mg/dL (74-106); LIPASE 43 U/L (73-393); POTASSIUM,K 3.7 mmol/L (3.5-5.1); SODIUM,NA 140 mmol/L (136-145)
[2020-03-03 15:17] VITALS: BP 125/70; PULSE 85
== END 2020-03-03 14:52 | disposition home or self-care (01) ==
LOC: MW.ED 12:32
DX: R10.11 Right upper quadrant pain (principal); T38.0X5A Adverse effect of glucocorticoids and synthetic analogues, initial encounter; T45.0X5A Adverse effect of antiallergic and antiemetic drugs, initial encounter; E11.9 Type 2 diabetes mellitus without complications; E66.9 Obesity, unspecified; Z88.5 Allergy status to narcotic agent; Z88.0 Allergy status to penicillin; Z88.8 Allergy status to other drugs, medicaments and biological substances; Z79.899 Other long term (current) drug therapy
CPT/HCPCS: 36415; 80053; 81003; 83690; 85025; 96372; 99284; A9270; J2930; 99283

== ENCOUNTER 2020-03-11 15:19 | Emergency (ER) | payer SELFPAY ==
[2020-03-11] MEDS ORDERED: diphenhydrAMINE 50 MG/ML SDV IVPUSH ONE (15:30)
[2020-03-11] MEDS ORDERED: methylPREDNISolone Sodium Succinate 125 MG/2 ML SDV IVPUSH ONE (15:30)
--- NOTE | 2020-03-11 18:13 | EDM.PDOC ---
ED HPI GENERAL MEDICAL PROBLEM - General Chief Complaint: Allergic Reaction Stated Complaint: SHORTNESS OF BREATHE/ALLERGIES Time Seen by Provider: 03/11/20 15:25 Source of Information: Reports: Patient History Limitations: Reports: No Limitations - History of Present Illness INITIAL COMMENTS - FREE TEXT/NARRATIVE: HISTORY AND PHYSICAL: History of present illness: Is a 45-year-old female who presents emergency room today with concern of an allergic reaction that started about 1 hour prior to arrival to the emergency room. Patient states that she has been having issues with these allergic reactions over the past several months and has been following with her primary care provider for this. Patient states that she has a referral to the network and threat support specialist which is scheduled out but states that she plans to follow-up with the network and threat support specialist. Patient states that she did have allergy testing which said that she was allergic to "dust mites ". Patient states generally her allergic reactions worsen as she is cleaning but states today she was just sitting in her living room when she began to feel her symptoms come on. Patient states that she feels her face become more "flushed "and her ears feel "warm "and turn red. Patient states that she does not have any swelling of her mouth or throat but states that in the past that she has if she has ignored her sympto ms. Patient states that she has been taking an off brand Benadryl daily but continues to have these allergic reactions. States that she was just recently on a steroid pack and stopped 2 days prior. Patient states that she does have an EpiPen available to her at home. Patient denies fever, chills, chest pain, shortness of breath, or cough. Denies headache, neck stiff ness, change in vision, syncope, or near syncope. Denies nausea, vomiting, abdominal pain, diarrhea, constipation, or dysuria. Has not noted any blood in urine or stool. Patient has been eating and drinking appropriately. Review of systems: As per history of present illness and below otherwise all systems reviewed and negative. Past medical history: As per history of present illness and as reviewed below otherwise nonco ntributory. Surgical history: As per history of present illness and as reviewed below otherwise noncontributory. Social history: See social history for further information Family history: As per history of present illness and as reviewed below otherwise noncontributory. Physical exam: General: Patient is alert, oriented, and in no acute distress. Patient sitting comfortably on exam table. Vitals stable and reviewed by me. HEENT: No lip edema, tongue edema, or oropharyngeal edema. No stridor. Atraumatic, normocephalic, pupils equal and reactive bilaterally, negative for conjunctival pallor or scleral icterus, mucous membranes moist, TMs normal bilaterally, throat clear, neck supple, nontender, trachea midline. No drooling or trismus noted. No meningeal signs. No hot potato voice noted. Lungs: Clear to auscultation, breath sounds equal bilaterally, chest nontender. Heart: S1S2, regular rate and rhythm without overt murmur Abdomen: Soft, nondistended, nontender. Negative for masses or hepatosplenomegaly. Negative for costovertebral tenderness. Pelvis: Stable nontender. Genitourinary: Deferred. Rectal: Deferred. Skin: Patient does have vitiligo on the left side of face. Patient does have darker skin tone but the area of vitiligo is pond scaler with red tint. Patients bilateral top ears are more erythematous. Otherwise, intact, warm, dry. No lesions or rashes noted. Extremities: Atraumatic, negative for cords or calf pain. Neurovascular unremarkable. Neuro: Awake, alert, oriented. Cranial nerves II through XII unremarkable. Cerebellum unremarkable. Motor and sensory unremarkable throughout. Exam nonfocal. Notes: After therapeutics today, patient expresses improvement of symptoms. The areas of erythema of her ears and area of vitiligo on the left side of her face are co mpletely resolved. I did offer to send in an RX for medrol dose pack but patient declines stating she would prefer to follow up with her pcp as this has been an ongoing issue. Strict return precautions thoroughly discussed with patient and expresses understanding. Voices understanding and is agreeable to plan of care. Denies any further questions or concerns at this time. Diagnostics: None Therapeutics: Benadryl, Solumedrol Prescription: Medrol dose pack offered but patient declines Impression: Allergic reaction Plan: 1. Avoid triggers. Continue to monitor for possible exposures/triggers/foods. 2. While symptomatic continue to routinely take Benadryl and Zantac as directed and as discussed. Take medication as prescribed. 3. Carry your Epi-Pen with you at all times. Use in the case of an emergency and call 911 and/or present to the ER. 4. Please follow up with your Primary care provider in network and threat support specialist as discussed. Return to the ED as needed and as discussed. Definitive disposition and diagnosis as appropriate pending reevaluation and review of above. - Related Data Allergies Allergy/AdvReac Type Severity Reaction Status Date / Time codeine Allergy Abdominal Verified 03/11/20 15:29 Pain Penicillins Allergy Other Verified 03/11/20 15:29 Phenothiazines Allergy Other Verified 03/11/20 15:29 Home Meds: Home Meds metFORMIN [Glucophage] 500 mg PO BID 02/18/18 [History] Cetirizine [ZyrTEC] 10 mg PO DAILY 01/30/20 [History] methylPREDNISolone [Medrol Dose Pack] 4 mg PO DAILY #21 tab 03/03/20 [Rx] Past Medical History HEENT History: Reports: Sinusitis Cardiovascular History: Reports: None Respiratory History: Reports: None Other Respiratory History: had asthma as a child but outgrew it Gastrointestinal History: Reports: Gastritis, GERD, PUD Genitourinary History: Reports: 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: 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 History: Reports: Fracture Other 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 History: hx of fx thumb Neurological History: Reports: None Psychiatric History: Reports: Anxiety, Depression Endocrine/Metabolic History: Reports: Diabetes, Type II, Obesity/BMI 30+ Hematologic History: Reports: None Immunologic History: Reports: None Oncologic (Cancer) History: Reports: None Dermatologic History: Reports: None - Infectious Disease History Infectious Disease History: Reports: Chicken Pox, Measles - Past Surgical History Head Surgeries/Procedures: Reports: None HEENT Surgical History: Reports: Oral Surgery, Tonsillectomy Cardiovascular Surgical History: Reports: None Respiratory Surgical History: Reports: None GI Surgical History: Reports: Appendectomy, Cholecystectomy Female Surgical History: Reports: Section Endocrine Surgical History: Reports: None Neurological Surgical History: Reports: None 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 Surgical History: Reports: None Oncologic Surgical History: Reports: None Dermatological Surgical History: Reports: None - History Comment History Comment: etoh "occasional" Social & Family History - Family History Family Medical History: No Pertinent Family History - Caffeine Use Caffeine Use: Reports: None - Recreational Drug Use Recreational Drug Use: No ED ROS ALLERGIC REACTION - Review of Systems Review Of Systems: Comprehensive ROS is negative, except as noted in HPI. ED EXAM GENERAL NO PERIP PULSE - Physical Exam Exam: See Below (see dictation) Course - Vital Signs Last Recorded V/S: Last Vital Signs Temp 97.3 F 03/11/20 15:44 Pulse 89 03/11/20 18:22 Resp 16 03/11/20 18:22 BP 134/74 03/11/20 18:22 Pulse Ox 96 03/11/20 18:22 - Orders/Labs/Meds Meds: Medications Discontinued Medications Generic Name Dose Route Start Last Admin Trade Name Elmo PRN Reason Stop Dose Admin Diphenhydramine HCl 50 mg 03/11/20 15:30 03/11/20 15:48 Benadryl IVPUSH 03/11/20 15:31 50 mg ONETIME ONE Administration Methylprednisolone Sodium Succinate 125 mg 03/11/20 15:30 03/11/20 15:48 Solu-Medrol IVPUSH 03/11/20 15:31 125 mg ONETIME ONE Administration Departure - Departure Time of Disposition: 18:11 Disposition: Home, Self-Care 01 Clinical Impression: Allergic reaction Qualifiers: Encounter type: initial encounter Qualified Code(s): T78.40XA - Allergy, unspecified, initial encounter - Discharge Information Instructions: Allergies, Adult, [id number] Referrals: PCP,None [Primary Care Provider] - Forms: ED Department Discharge Additional Instructions: The following information is given to patients seen in the emergency department who are being discharged to home. This information is to outline your options for follow-up care. We provide all patients seen in our emergency department with a follow-up referral. The need for follow-up, as well as the timing and circumstances, are variable depending upon the specifics of your emergency department visit. If you don't have a primary care physician on staff, we will provide you with a referral. We always advise you to contact your personal physician following an emergency department visit to inform them of the circumstance of the visit and for follow-up with them and/or the need for any referrals to a consulting specialist. The emergency department will also refer you to a specialist when appropriate. This referral assures that you have the opportunity for follow-up care with a specialist. All of these measure are taken in an effort to provide you with optimal care, which includes your follow-up. Under all circumstances we always encourage you to contact your private physician who remains a resource for coordinating your care. When calling for follow-up care, please make the office aware that this follow-up is from your recent emergency room visit. If for any reason you are refused follow-up, please contact the [facility] Emergency Department at and asked to speak to the emergency department charge nurse. [facility] [address] [place] [address] [address] 1. Avoid triggers. Continue to monitor for possible exposures/triggers/foods. 2. While symptomatic continue to routinely take Benadryl and Zantac as directed and as discussed. Take medication as prescribed. 3. Carry your Epi-Pen with you at all times. Use in the case of an emergency and call 911 and/or present to the ER. 4. Please follow up with your Primary care provider in network and threat support specialist as discussed. Return to the ED as needed and as discussed. Sepsis Event Note (ED) - Evaluation Sepsis Screening Result: No Definite Risk
[2020-03-11 18:26] VITALS: BP 134/74; PULSE 89
== END 2020-03-11 18:23 | disposition home or self-care (01) ==
LOC: MW.ED 15:19
DX: T78.40XA Allergy, unspecified, initial encounter (principal); E11.9 Type 2 diabetes mellitus without complications; E66.9 Obesity, unspecified; Z68.33 Body mass index [BMI] 33.0-33.9, adult; Z88.5 Allergy status to narcotic agent; Z88.0 Allergy status to penicillin; Z88.8 Allergy status to other drugs, medicaments and biological substances
CPT/HCPCS: 96374; 96375; 99283; J1200; J2930

== ENCOUNTER 2020-05-17 10:54 | Observation (INO) | payer SELFPAY ==
[2020-05-17] MEDS ORDERED: methylPREDNISolone Sodium Succinate 125 MG/2 ML SDV ONE (11:02)
[2020-05-17] MEDS ORDERED: Famotidine 20 MG/2 ML SDV ONE (11:02)
[2020-05-17] MEDS ORDERED: Famotidine 20 MG/2 ML SDV IVPUSH ONE ×2 (11:03→16:05)
[2020-05-17] MEDS ORDERED: methylPREDNISolone Sodium Succinate 125 MG/2 ML SDV IVPUSH ONE (11:03)
[2020-05-17] MEDS ORDERED: diphenhydrAMINE 50 MG/ML SDV IVPUSH ONE ×2 (11:07→15:27)
[2020-05-17] MEDS ORDERED: Lactated Ringers 1,000 ML IV SCH (11:15)
--- NOTE | 2020-05-17 11:21 | EDM.PDOC ---
ED HPI GENERAL MEDICAL PROBLEM - General Chief Complaint: Allergic Reaction Stated Complaint: UNK Time Seen by Provider: 05/17/20 11:00 Source of Information: Reports: Patient History Limitations: Reports: No Limitations - History of Present Illness INITIAL COMMENTS - FREE TEXT/NARRATIVE: 45-year-old female with history of allergic reaction presents with facial itching and tongue swelling 30 minutes prior to arrival. She also states her fingers are swollen. She gave herself an epinephrine injection and 1 [id number]-[id number] Benadryl. She took a loratadine earlier in the morning. She has a history of allergic reaction but was never intubated. She denies feeling short of breath or wheezy, abdominal pain, nausea, vomiting, lightheadedness or dizziness. ROS: A 10-point review of systems, other than pertinent positives and negatives as stated per HPI, is otherwise negative Past medical history: No additional pertinent history Past Surgical history: No additional pertinent history Social history: No additional pertinent history Family history: No additional pertinent history PHYSICAL EXAM General: AOx4, GCS = 15, No distress HEENT: dry mucous membrane, Mallampati score = 2, no stridor, no hoarseness, able to handle secretions. Skin: Left facial vitiligo Neck: supple, no meningismus, no Kernig or Brudzinski Cardiac: S1S2 tachycardia Respiratory: CTAB, no crackles or rales, no wheezing Abdomen: Soft, nontender, no rebound or guarding, nondistended, no pulsatile mass. Back: nontender 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: NVI distally, no deformity Neuro: No focal deficits, CN 2 - 12 WNL. - Related Data Allergies Allergy/AdvReac Type Severity Reaction Status Date / Time codeine Allergy Abdominal Verified 03/11/20 15:29 Pain Penicillins Allergy Other Verified 03/11/20 15:29 Phenothiazines Allergy Other Verified 03/11/20 15:29 dustmites Allergy Itching Uncoded 05/17/20 11:29 housemites Allergy Itching Uncoded 05/17/20 11:29 Home Meds: Home Meds metFORMIN [Glucophage] 500 mg PO BID 02/18/18 [History] EPINEPHrine [Epipen 2-Homer] 0.3 mg IJ ONETIME PRN #1 applic 05/17/20 [Rx] Famotidine [Pepcid AC] 20 mg PO BID 5 Days #10 tablet 05/17/20 [Rx] Loratadine 10 mg PO DAILY 05/17/20 [History] diphenhydrAMINE [Benadryl] 50 mg PO Q6HR PRN #20 cap 05/17/20 [Rx] predniSONE [Prednisone] 50 mg PO DAILY #5 tablet 05/17/20 [Rx] Past Medical History HEENT History: Reports: Sinusitis Cardiovascular History: Reports: None Respiratory History: Reports: None Other Respiratory History: had asthma as a child but outgrew it Gastrointestinal History: Reports: Gastritis, GERD, PUD Genitourinary History: Reports: None 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: 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 History: Reports: Fracture Other 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 History: hx of fx thumb Neurological History: Reports: None Psychiatric History: Reports: Anxiety, Depression Endocrine/Metabolic History: Reports: Diabetes, Type II, Obesity/BMI 30+ Hematologic History: Reports: None Immunologic History: Reports: None Oncologic (Cancer) History: Reports: None Dermatologic History: Reports: None - Infectious Disease History Infectious Disease History: Reports: Chicken Pox, Measles - Past Surgical History Head Surgeries/Procedures: Reports: None HEENT Surgical History: Reports: Oral Surgery, Tonsillectomy Cardiovascular Surgical History: Reports: None Respiratory Surgical History: Reports: None GI Surgical History: Reports: Appendectomy, Cholecystectomy Female Surgical History: Reports: Section Endocrine Surgical History: Reports: None Neurological Surgical History: Reports: None 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 Surgical History: Reports: None Oncologic Surgical History: Reports: None Dermatological Surgical History: Reports: None - History Comment History Comment: etoh "occasional" Social & Family History - Family History Family Medical History: No Pertinent Family History - Caffeine Use Caffeine Use: Reports: None ED ROS ALLERGIC REACTION - Review of Systems Review Of Systems: See Below (see dictation) ED EXAM GENERAL NO PERIP PULSE - Physical Exam Exam: See Below (see dictation) #1 Interpretation EKG Interpretation Comments: Heart rate = 101 bpm, sinus tachycardia, normal QRS interval, no STEMI. EKG and rhythm strip interpreted by me at 1055 Course - Vital Signs Last Recorded V/S: Last Vital Signs Temp 98.2 F 05/17/20 10:55 Pulse 99 05/17/20 15:00 Resp 17 05/17/20 15:00 BP 121/80 05/17/20 15:00 Pulse Ox 97 05/17/20 15:00 - Orders/Labs/Meds Orders: Active Orders 24 hr Category Date Time Status Cardiac Monitoring [RC] . DIRECTED Care 05/17/20 11:25 Active Lactated Ringers [Ringers, Lactated] 1,000 ml Med 05/17/20 11:15 Active IV .BOLUS Pulse Oximetry Continuous Monitoring [OM.PC] CONTINUOUS Oth 05/17/20 11:30 Ordered Medication Orders Lactated Ringer's (Ringers, Lactated) 1,000 mls @ 999 mls/hr IV .BOLUS STEF Last Admin: 05/17/20 11:14 Dose: 999 mls/hr Documented by: MARIA D Labs: Laboratory Tests 05/17/20 05/17/20 Range/Units 11:00 11:00 WBC 13.18 H (4.0-11.0) K/uL RBC 4.85 (4.30-5.90) M/uL Hgb 13.9 (12.0-16.0) g/dL Hct 41.6 (36.0-46.0) % MCV 85.8 (80.0-98.0) fL MCH 28.7 (27.0-32.0) pg MCHC 33.4 (31.0-37.0) g/dL RDW Std Deviation 42.7 (28.0-62.0) fl RDW Coeff of Tanvi 14 (11.0-15.0) % Plt Count 466 H (150-400) K/uL MPV 8.70 (7.40-12.00) fL Add Manual Diff YES Neutrophils % (Manual) 27 L (48.0-80.0) % Lymphocytes % (Manual) 66 H (16.0-40.0) % Monocytes % (Manual) 5 (0.0-15.0) % Eosinophils % (Manual) 2 (0.0-7.0) % Nucleated RBC % 0.0 /100WBC Absolute Seg Neuts 3.6 (1.4-5.7) Lymphocytes # (Manual) 8.7 H (0.6-2.4) Monocytes # (Manual) 0.7 (0.0-0.8) Eosinophils # (Manual) 0.3 (0.0-0.7) Nucleated RBCs # 0 K/uL Sodium 141 (136-145) mmol/L Potassium 3.7 (3.5-5.1) mmol/L Chloride 105 (98-107) mmol/L Carbon Dioxide 23.4 (21.0-32.0) mmol/L BUN 11 (7.0-18.0) mg/dL Creatinine 0.9 (0.6-1.0) mg/dL Est Cr Clr Drug Dosing TNP Estimated GFR (MDRD) > 60.0 ml/min Glucose 116 H (74-106) mg/dL Calcium 8.6 (8.5-10.1) mg/dL Total Bilirubin 0.4 (0.2-1.0) mg/dL AST 27 (15-37) IU/L ALT 62 (14-63) IU/L Alkaline Phosphatase 88 (46-116) U/L Total Protein 7.8 (6.4-8.2) g/dL Albumin 3.5 (3.4-5.0) g/dL Globulin 4.3 H (2.6-4.0) g/dL Albumin/Globulin Ratio 0.8 L (0.9-1.6) Meds: Medications Generic Name Dose Route Start Last Admin Trade Name Freq PRN Reason Stop Dose Admin Lactated Ringer's 1,000 mls @ 999 mls/hr 05/17/20 11:15 05/17/20 11:14 Ringers, Lactated IV 999 mls/hr .BOLUS STEF Administration Discontinued Medications Generic Name Dose Route Start Last Admin Trade Name Freq PRN Reason Stop Dose Admin Diphenhydramine HCl 50 mg 05/17/20 11:07 05/17/20 11:11 Benadryl IVPUSH 05/17/20 11:08 50 mg ONETIME ONE Administration Famotidine Confirm 05/17/20 11:02 05/17/20 11:11 Pepcid Administered 05/17/20 11:03 Not Given Dose 20 mg .ROUTE .STK-MED ONE Famotidine 20 mg 05/17/20 11:03 05/17/20 11:11 Pepcid IVPUSH 05/17/20 11:04 20 mg ONETIME ONE Administration Methylprednisolone Sodium Succinate Confirm 05/17/20 11:02 05/17/20 11:12 Solu-Medrol Administered 05/17/20 11:03 Not Given Dose 125 mg .ROUTE .STK-MED ONE Methylprednisolone Sodium Succinate 125 mg 05/17/20 11:03 05/17/20 11:11 Solu-Medrol IVPUSH 05/17/20 11:04 125 mg ONETIME ONE Administration - Re-Assessments/Exams Free Text/Narrative Re-Assessment/Exam: 05/17/20 15:10 After IV fluids, Solu-Medrol 125 mg, Benadryl 50 mg IV, Pepcid 20 mg IV, and a prolonged observation In the ER, the patient improved and is currently stable for discharge. I performed a repeat exam and did not appreciate new abnormal findings. Patient exhibits normal vital signs and has a normal gait on road test. I advised the patient to return to the ER for reevaluation if symptoms worsened, including fever, worsening pain, or any other worrisome symptoms. I instructed the patient to follow up with their PCP within 2-3 days. MEDICAL DECISION MAKING: I reviewed the patients past medical records, lab and radiographic findings. I discussed the case with the patient. My differential diagnosis included: Angioedema, allergic reaction, anaphylaxis. Patient was given epinephrine in the field and Solu-Medrol and Benadryl and Pepcid and IV fluids in the ER. She was not wheezing. Her symptoms improved after prolonged observation. She has a follow-up appointment to see an beekeeper in [place]. Departure - Departure Time of Disposition: 15:00 Disposition: Home, Self-Care 01 Condition: Good Clinical Impression: Allergic reaction - Discharge Information *PRESCRIPTION DRUG MONITORING PROGRAM REVIEWED*: Not Applicable *COPY OF PRESCRIPTION DRUG MONITORING REPORT IN PATIENT DILIP: Not Applicable Prescriptions: diphenhydrAMINE [Benadryl] 50 mg PO Q6HR PRN #20 cap PRN Reason: Allergies EPINEPHrine [Epipen 2-Homer] 0.3 mg IJ ONETIME PRN #1 applic PRN Reason: Allergies Famotidine [Pepcid AC] 20 mg PO BID 5 Days #10 tablet predniSONE [Prednisone] 50 mg PO DAILY #5 tablet Instructions: Allergies, Adult, [id number] Referrals: PCP,Unobtain [Primary Care Provider] - Forms: ED Department Discharge Critical Care Note - Critical Care Note Total Time (mins): 40 Comments: CRITCAL CARE: The high probability of sudden, clinically significant deterioration in the patient's condition required the highest level of my preparedness to intervene urgently. The services I provided to this patient were to treat and/or prevent clinically significant deterioration. Services included the following: chart data review, reviewing nursing notes and/or old charts, documentation time, wellness consultant collaboration regarding findings and treatment options, medication orders and management, direct patient care, vital sign assessments and ordering, interpreting and reviewing diagnostic studies/lab tests. Aggregate critical care time includes only time during which I was engaged in work directly related to the patient's care, as described above, whether at the bedside or elsewhere in the Emergency Department. It did not include time spent performing other reported procedures or the services of residents, students, nurses or physician assistants. Frequent interventions and/or frequent repeat evaluations were required as well as counseling and coordination of care regarding prognosis, treatments, and discussions with patient, staff and consultants. Critical Care (excluding other procedures): 40 minutes Sepsis Event Note (ED) - Focused Exam Vital Signs: Vital Signs Temp Pulse Resp BP Pulse Ox 05/17/20 15:00 99 17 121/80 97 05/17/20 14:11 91 19 124/62 97 05/17/20 13:49 101 H 18 130/83 98 05/17/20 12:43 85 18 143/89 H 97 05/17/20 12:12 98 18 129/78 98 05/17/20 11:30 92 18 148/86 H 99 05/17/20 11:15 102 H 18 134/74 99 05/17/20 10:55 98.2 F 118 H 20 156/83 H 97 - My Orders Last 24 Hours: My Active Orders 05/17/20 11:15 Lactated Ringers [Ringers, Lactated] 1,000 ml IV .BOLUS 05/17/20 11:25 Cardiac Monitoring [RC] . DIRECTED 05/17/20 11:30 Pulse Oximetry Continuous Monitoring [OM.PC] CONTINUOUS - Assessment/Plan Last 24 Hours: My Active Orders 05/17/20 11:15 Lactated Ringers [Ringers, Lactated] 1,000 ml IV .BOLUS 05/17/20 11:25 Cardiac Monitoring [RC] . DIRECTED 05/17/20 11:30 Pulse Oximetry Continuous Monitoring [OM.PC] CONTINUOUS
[2020-05-17 11:58] LABS: BLOOD UREA NITROGEN,BUN 11 mg/dL (7.0-18.0); CARBON DIOXIDE,CO2 23.4 mmol/L (21.0-32.0); CHLORIDE,CL 105 mmol/L (98-107); GLUCOSE RANDOM 116 mg/dL (74-106); POTASSIUM,K 3.7 mmol/L (3.5-5.1); SODIUM,NA 141 mmol/L (136-145)
[2020-05-17] MEDS ORDERED: Lactated Ringers 1,000 ML IV ONE (15:56)
[2020-05-17] MEDS ORDERED: EPINEPHrine 1 MG/ML SDV IM ONE ×2 (15:57→16:17)
[2020-05-17] MEDS ORDERED: methylPREDNISolone Sodium Succinate 40 MG/1 ML SDV IVPUSH ONE (16:05)
--- NOTE | 2020-05-17 16:56 | PCM.HP.2 ---
H&P History of Present Illness - General Date of Service: 05/17/20 Admit Problem/Dx: Admission Diagnosis/Problem Admission Diagnosis/Problem Allergic reaction Source of Information: Patient History Limitations: Reports: No Limitations - History of Present Illness Initial Comments - Free Text/Narative: This 45-year-old female with past medical history of diabetes and allergic reactions presented today with complaints of an allergic reaction. She reports she was having facial itching along with tongue swelling that started 30 minutes prior to arrival to the ER. She also reports that her fingers are swollen. At home she gave herself epinephrine and Benadryl orally. She also took her scheduled loratadine prior in the morning. She reports she was sitting at home when this all started this morning. 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 She reported she tried this but lasted only 24 hours and then started having severe itching and facial swelling. She denies any tongue swelling at this time or trouble breathing. She reports she has some chest pressure after the epinephrine but no chest pain. Denies any further abdominal pain. Denies any tobacco use recreational drug use and rare social alcohol use. In the ER mild leukocytosis noted at 13,000, platelet count 466,000 neutrophils 27% lymphocytes 66%. Sodium 141 potassium 3.7 BUN and creatinine 11 and 0.9 respectively. Glucose 116 vital signs initially revealed tachycardia 118 blood pressure 156/83 respiratory rate 20, oxygen saturation 97% on room air. She is initially treated with epinephrine Pepcid Benadryl and Solu-Medrol. She was evaluated and monitored in the ER for a couple hours. Upon discharge she started having erythematous rash along with abdominal pain, she reported symptoms were coming back she was then redosed with Benadryl epinephrine 0.3 mg IM along with Solu-Medrol. ER recommended admission secondary to refractory allergic symptoms. Dr. Nicole, PCP - Related Data Allergies/Adverse Reactions: Allergies Allergy/AdvReac Type Severity Reaction Status Date / Time codeine Allergy Abdominal Verified 03/11/20 15:29 Pain Penicillins Allergy Other Verified 03/11/20 15:29 Phenothiazines Allergy Other Verified 03/11/20 15:29 dustmites Allergy Itching Uncoded 05/17/20 11:29 housemites Allergy Itching Uncoded 05/17/20 11:29 Home Medications: Home Meds metFORMIN [Glucophage] 500 mg PO BID 02/18/18 [History] EPINEPHrine [Epipen 2-Homer] 0.3 mg IJ ONETIME PRN #1 applic 05/17/20 [Rx] Famotidine [Pepcid AC] 20 mg PO BID 5 Days #10 tablet 05/17/20 [Rx] Loratadine 10 mg PO DAILY 05/17/20 [History] diphenhydrAMINE [Benadryl] 50 mg PO Q6HR PRN #20 cap 05/17/20 [Rx] predniSONE [Prednisone] 50 mg PO DAILY #5 tablet 05/17/20 [Rx] Past Medical History HEENT History: Reports: Sinusitis Cardiovascular History: Reports: None Respiratory History: Reports: Asthma, Other (See Below) Other Respiratory History: had asthma as a child but outgrew it. 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: 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 History: Reports: Fracture Other 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 History: hx of fx thumb Neurological History: Reports: None Psychiatric History: Reports: Anxiety, Depression Endocrine/Metabolic History: Reports: Diabetes, Type II, Obesity/BMI 30+ Hematologic History: Reports: None Immunologic History: Reports: None Oncologic (Cancer) History: Reports: None Dermatologic History: Reports: None - Infectious Disease History Infectious Disease History: Reports: Chicken Pox, Measles - Past Surgical History Head Surgeries/Procedures: Reports: None HEENT Surgical History: Reports: Oral Surgery, Tonsillectomy Cardiovascular Surgical History: Reports: None Respiratory Surgical History: Reports: None GI Surgical History: Reports: Appendectomy, Cholecystectomy Female Surgical History: Reports: Section Endocrine Surgical History: Reports: None Neurological Surgical History: Reports: None 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 Surgical History: Reports: None Oncologic Surgical History: Reports: None Dermatological Surgical History: Reports: None - History Comment History Comment: etoh "occasional" Social & Family History - Family History Family Medical History: No Pertinent Family History - Tobacco Use Tobacco Use Status *Q: Never Tobacco User Second Hand Smoke Exposure: No - Caffeine Use Caffeine Use: Reports: Coffee - Recreational Drug Use Recreational Drug Use: No H&P Review of Systems - Review of Systems: Review Of Systems: See Below General: Reports: No Symptoms. Denies: Fever, Chills, Malaise Pulmonary: Reports: Other (chest heaviness, but feels panicked). Denies: Shortness of Breath Cardiovascular: Reports: No Symptoms. Denies: Chest Pain, Lightheadedness Gastrointestinal: Reports: No Symptoms. Denies: Abdominal Pain, Black Stool, Bloody Stool, Nausea, Vomiting Genitourinary: Reports: No Symptoms. Denies: Dysuria, Frequency Skin: Reports: Pruritis, Other (swelling to hands and feet, slightly improved.) Psychiatric: Reports: No Symptoms Neurological: Reports: No Symptoms Hematologic/Lymphatic: Reports: No Symptoms Immunologic: Reports: No Symptoms Exam - Exam Exam: See Below - Vital Signs Vital Signs: Last Vital Signs Temp 98.2 F 05/17/20 10:55 Pulse 111 H 05/17/20 15:34 Resp 18 05/17/20 15:34 BP 173/94 H 05/17/20 15:34 Pulse Ox 97 05/17/20 15:34 Weight: 97 kg - Exam Quality Assessment: No: Supplemental Oxygen General: Alert, Oriented, Cooperative HEENT: Conjunctiva Clear, Mucosa Moist & [place], Posterior Pharynx Clear Neck: Supple, Trachea Midline Lungs: Clear to Auscultation, Normal Respiratory Effort. No: Stridor, Wheezing Cardiovascular: Regular Rate, Regular Rhythm GI/Abdominal Exam: Normal Bowel Sounds, Soft, Non-Tender, No Distention Back Exam: Normal Inspection, Full Range of Motion Extremities: Normal Inspection, Normal Range of Motion, No Pedal Edema Skin: Warm, Dry, Intact Neuro Extensive - Mental Status: Alert, Oriented x3 Neuro Extensive - Motor, Sensory, Reflexes: CN II-XII Intact, Normal Gait Psychiatric: Alert, Normal Affect, Normal Mood - Patient Data Lab Results Last 24 hrs: Laboratory Results - last 24 hr 05/17/20 05/17/20 Range/Units 11:00 11:00 WBC 13.18 H (4.0-11.0) K/uL RBC 4.85 (4.30-5.90) M/uL Hgb 13.9 (12.0-16.0) g/dL Hct 41.6 (36.0-46.0) % MCV 85.8 (80.0-98.0) fL MCH 28.7 (27.0-32.0) pg MCHC 33.4 (31.0-37.0) g/dL RDW Std Deviation 42.7 (28.0-62.0) fl RDW Coeff of Tanvi 14 (11.0-15.0) % Plt Count 466 H (150-400) K/uL MPV 8.70 (7.40-12.00) fL Add Manual Diff YES Neutrophils % (Manual) 27 L (48.0-80.0) % Lymphocytes % (Manual) 66 H (16.0-40.0) % Monocytes % (Manual) 5 (0.0-15.0) % Eosinophils % (Manual) 2 (0.0-7.0) % Nucleated RBC % 0.0 /100WBC Absolute Seg Neuts 3.6 (1.4-5.7) Lymphocytes # (Manual) 8.7 H (0.6-2.4) Monocytes # (Manual) 0.7 (0.0-0.8) Eosinophils # (Manual) 0.3 (0.0-0.7) Nucleated RBCs # 0 K/uL Sodium 141 (136-145) mmol/L Potassium 3.7 (3.5-5.1) mmol/L Chloride 105 (98-107) mmol/L Carbon Dioxide 23.4 (21.0-32.0) mmol/L BUN 11 (7.0-18.0) mg/dL Creatinine 0.9 (0.6-1.0) mg/dL Est Cr Clr Drug Dosing TNP Estimated GFR (MDRD) > 60.0 ml/min Glucose 116 H (74-106) mg/dL Calcium 8.6 (8.5-10.1) mg/dL Total Bilirubin 0.4 (0.2-1.0) mg/dL AST 27 (15-37) IU/L ALT 62 (14-63) IU/L Alkaline Phosphatase 88 (46-116) U/L Total Protein 7.8 (6.4-8.2) g/dL Albumin 3.5 (3.4-5.0) g/dL Globulin 4.3 H (2.6-4.0) g/dL Albumin/Globulin Ratio 0.8 L (0.9-1.6) Result Diagrams: 05/17/20 11:00 05/17/20 11:00 Sepsis Event Note - Evaluation Sepsis Screening Result: No Definite Risk - Focused Exam Vital Signs: Vital Signs Temp Pulse Resp BP Pulse Ox 05/17/20 15:34 111 H 18 173/94 H 97 05/17/20 15:00 99 17 121/80 97 05/17/20 14:11 91 19 124/62 97 05/17/20 13:49 101 H 18 130/83 98 05/17/20 12:43 85 18 143/89 H 97 05/17/20 12:12 98 18 129/78 98 05/17/20 11:30 92 18 148/86 H 99 05/17/20 11:15 102 H 18 134/74 99 05/17/20 10:55 98.2 F 118 H 20 156/83 H 97 - Problem List (1) Vitiligo SNOMED Code(s): 87625012 ICD Code: L80 - VITILIGO Status: Acute Current Visit: Yes (2) DM type 2 (diabetes mellitus, type 2) SNOMED Code(s): 05533273 ICD Code: E11.9 - TYPE 2 DIABETES MELLITUS WITHOUT COMPLICATIONS Status: Acute Current Visit: Yes (3) Allergic reaction SNOMED Code(s): 305943287 ICD Code: T78.40XA - ALLERGY, UNSPECIFIED, INITIAL ENCOUNTER Status: Acute Current Visit: No (4) Edema of face SNOMED Code(s): 893355991 ICD Code: R60.0 - LOCALIZED EDEMA Status: Acute Current Visit: No Problem List Initiated/Reviewed/Updated: Yes Orders Last 24hrs: Active Orders 24 hr Category Date Time Status Patient Status [ADT] Routine ADT 05/17/20 16:09 Active Cardiac Monitoring [RC] . DIRECTED Care 05/17/20 11:25 Active CORONAVIRUS COVID-19 REGINO [MOLEC] Stat Lab 05/17/20 16:10 Received Lactated Ringers [Ringers, Lactated] 1,000 ml Med 05/17/20 11:15 Active IV .BOLUS Lactated Ringers [Ringers, Lactated] 1,000 ml Med 05/17/20 15:56 Active IV .BOLUS Pulse Oximetry Continuous Monitoring [OM.PC] CONTINUOUS Oth 05/17/20 11:30 Or dered Medication Orders Lactated Ringer's (Ringers, Lactated) 1,000 mls @ 999 mls/hr IV .BOLUS STEF Last Admin: 03/05/21 11:14 Dose: 999 mls/hr Documented by: MARIA D Lactated Ringer's (Ringers, Lactated) 1,000 mls @ 999 mls/hr IV .BOLUS ONE Stop: 05/17/20 16:56 Last Admin: 05/17/20 16:15 Dose: 999 mls/hr Documented by: MARIA D Assessment/Plan Comment:: This 45-year-old female admitted with allergic reaction. 1. Allergic reaction -Continue Benadryl 50 mg IV scheduled every 6 hours -Solu-Medrol 40 mg IV twice daily -Continue Pepcid 20 mg p.o. twice daily -Continue loratadine daily -Continuous pulse ox -Monitor on telemetry -Recommend outpatient allergy testing 2. Type II DM -Hold oral medications -NovoLog sliding scale insulin with meals VTE prophylaxis: SCDs and ambulation CODE STATUS: Full code Dispo: 1 day
[2020-05-17] MEDS ORDERED: Sodium Chloride 0.9% 2.5 ML Syringe FLUSH PRN (17:04)
[2020-05-17] MEDS ORDERED: Ondansetron 4 MG/2 ML SDV IVPUSH PRN (17:04)
[2020-05-17] MEDS ORDERED: Acetaminophen 325 MG Tab PO PRN (17:04)
[2020-05-17] MEDS ORDERED: EPINEPHrine 1 MG/1 ML Amp IM PRN (17:15)
[2020-05-17] MEDS ORDERED: Glucagon,Human Recombinant 1 MG Vial IM PRN (17:16)
[2020-05-17] MEDS ORDERED: 50% Dextrose in Water 50 ML Syringe IV PRN (17:16)
[2020-05-17] MEDS: Lactated Ringers 1,000 ML IV SCH (18:56)
[2020-05-17] MEDS: Famotidine 20 MG Tab PO SCH (20:58)
[2020-05-17] MEDS: diphenhydrAMINE 50 MG/ML SDV IVPUSH SCH (20:58)
[2020-05-17] MEDS: methylPREDNISolone Sodium Succinate 40 MG/1 ML SDV IV SCH (20:58)
[2020-05-18] MEDS: Lactated Ringers 1,000 ML IV SCH (04:07)
[2020-05-18] MEDS: diphenhydrAMINE 50 MG/ML SDV IVPUSH SCH ×3 (04:11→15:33)
[2020-05-18 07:06] LABS: BLOOD UREA NITROGEN,BUN 11 mg/dL (7.0-18.0); CARBON DIOXIDE,CO2 26.2 mmol/L (21.0-32.0); CHLORIDE,CL 107 mmol/L (98-107); GLUCOSE RANDOM 152 mg/dL (74-106); POTASSIUM,K 4.2 mmol/L (3.5-5.1); SODIUM,NA 141 mmol/L (136-145)
[2020-05-18] MEDS: methylPREDNISolone Sodium Succinate 40 MG/1 ML SDV IV SCH (08:42)
[2020-05-18] MEDS: Famotidine 20 MG Tab PO SCH (08:43)
[2020-05-18 08:53] VITALS: BP 143/92; PULSE 86
[2020-05-18] MEDS ORDERED: Loratadine 10 MG Tab PO SCH (09:00)
[2020-05-18] MEDS: Insulin Aspart 100 Units/ML 3 ML Pen SUBCUT SCH ×2 (10:05→14:10)
--- NOTE | 2020-05-18 10:50 | PCM.DCSUM1 ---
<Kashif Nicole - Last Filed: 05/18/20 14:26> Discharge Summary - Hospital Course Free Text/Narrative:: 45-year-old male admitted for allergic reaction. She has a PMH of DM type 2 and severe dustmite/housemite allergy. Patient was noted to have facial itching and tongue swelling. Prior to going to the hospital she gave herself benadryl and epinephrine. On admission, WBC 13,000. She was given epinephrine again in the ER, pepcid and benadryl. She was feeling better and about to be discharged from the ER when she started developing a rash and abdominal pain. She was then given another dose of epinephrine, IV steroids and admitted for further evaluation. Patient was started on schedule IV benadryl, IV solumedrol, pepcid and loratadine. She remained hemodynamically stable overnight with no recurrence of allergic symptoms and discharged in stable condition. For patient's history of severe allergic reactions she was referred to an peripheral equipment operator by her PCP in the past. Fiber Heel Piece Shaper required patient to be off of any anti-allergy medications for at least 7 days prior to doing further testing. Patient reported that she cannot go more than 24 hours without anti-allergy medication as she will develop severe allergic reaction. Patient has had multiple ER visits over the past several months for allergic reactions despite taking loratadine daily, benadryl prn and trying her best to avoid known allergen triggers (dust and housemites). For this reason, I believe patient needs to have further peripheral equipment operator work-up at [facility] where she can be monitored very closely if she needs to withhold her allergy medications in order to do further evaluation, as she develops severe allergic reactions when not taking any anti-allergy medication. Referral to [facility] will be sent on behalf of patient. - Discharge Data Discharge Date: 05/18/20 Discharge Disposition: Home, Self-Care 01 Condition: Good - Referral to Home Health Primary Care Physician: PCP None - Patient Instructions Diet: Usual Diet as Tolerated Activity: As Tolerated Notify Provider of: Fever, Increased Pain, Swelling and Redness, Drainage, Nausea and/or Vomiting - Discharge Plan *PRESCRIPTION DRUG MONITORING PROGRAM REVIEWED*: Not Applicable *COPY OF PRESCRIPTION DRUG MONITORING REPORT IN PATIENT DILIP: Not Applicable Prescriptions/Med Rec: diphenhydrAMINE [Benadryl] 50 mg PO Q6HR PRN #20 cap PRN Reason: Allergies EPINEPHrine [Epipen 2-Homer] 0.3 mg IJ ONETIME PRN #1 applic PRN Reason: Allergies Famotidine [Pepcid AC] 20 mg PO BID 5 Days #10 tablet predniSONE [Prednisone] 50 mg PO DAILY #5 tablet Home Medications: Home Meds metFORMIN [Glucophage] 500 mg PO BID 02/18/18 [History] EPINEPHrine [Epipen 2-Homer] 0.3 mg IJ ONETIME PRN #1 applic 05/17/20 [Rx] Famotidine [Pepcid AC] 20 mg PO BID 5 Days #10 tablet 05/17/20 [Rx] Loratadine 10 mg PO DAILY 05/17/20 [History] diphenhydrAMINE [Benadryl] 50 mg PO Q6HR PRN #20 cap 05/17/20 [Rx] predniSONE [Prednisone] 50 mg PO DAILY #5 tablet 05/17/20 [Rx] Oxygen Therapy Mode: Room Air Patient Handouts: Famotidine tablets or gelcaps, Allergies, Adult, [id number], Diphenhydramine capsules or tablets, Epinephrine injection (Auto- injector), Prednisone tablets Forms: ED Department Discharge - Discharge Summary/Plan Comment DC Time >30 min.: No - Patient Data Vitals - Most Recent: Last Vital Signs Temp 36.9 C 05/18/20 08:00 Pulse 86 05/18/20 08:00 Resp 16 05/18/20 08:00 BP 143/92 H 05/18/20 08:00 Pulse Ox 100 05/18/20 08:00 Weight - Most Recent: 92.986 kg I&O - Last 24 hours: Intake & Output 05/17/20 05/18/20 05/18/20 22:59 06:59 14:59 Intake Total 909 Balance 909 Lab Results - Last 24 hrs: Laboratory Results - last 24 hr 05/17/20 05/17/20 05/17/20 Range/Units 11:00 11:00 16:10 WBC 13.18 H (4.0-11.0) K/uL RBC 4.85 (4.30-5.90) M/uL Hgb 13.9 (12.0-16.0) g/dL Hct 41.6 (36.0-46.0) % MCV 85.8 (80.0-98.0) fL MCH 28.7 (27.0-32.0) pg MCHC 33.4 (31.0-37.0) g/dL RDW Std Deviation 42.7 (28.0-62.0) fl RDW Coeff of Tanvi 14 (11.0-15.0) % Plt Count 466 H (150-400) K/uL MPV 8.70 (7.40-12.00) fL Neut % (Auto) (48.0-80.0) % Lymph % (Auto) (16.0-40.0) % Horry % (Auto) (0.0-15.0) % Eos % (Auto) (0.0-7.0) % Baso % (Auto) (0.0-1.5) % Neut # (Auto) (1.4-5.7) K/uL Lymph # (Auto) (0.6-2.4) K/uL Horry # (Auto) (0.0-0.8) K/uL Eos # (Auto) (0.0-0.7) K/uL Baso # (Auto) (0.0-0.1) K/uL Add Manual Diff YES Neutrophils % (Manual) 27 L (48.0-80.0) % Lymphocytes % (Manual) 66 H (16.0-40.0) % Monocytes % (Manual) 5 (0.0-15.0) % Eosinophils % (Manual) 2 (0.0-7.0) % Nucleated RBC % 0.0 /100WBC Absolute Seg Neuts 3.6 (1.4-5.7) Lymphocytes # (Manual) 8.7 H (0.6-2.4) Monocytes # (Manual) 0.7 (0.0-0.8) Eosinophils # (Manual) 0.3 (0.0-0.7) Nucleated RBCs # 0 K/uL Sodium 141 (136-145) mmol/L Potassium 3.7 (3.5-5.1) mmol/L Chloride 105 (98-107) mmol/L Carbon Dioxide 23.4 (21.0-32.0) mmol/L BUN 11 (7.0-18.0) mg/dL Creatinine 0.9 (0.6-1.0) mg/dL Est Cr Clr Drug Dosing TNP Estimated GFR (MDRD) > 60.0 ml/min Glucose 116 H (74-106) mg/dL POC Glucose (60-110) mg/dL Calcium 8.6 (8.5-10.1) mg/dL Total Bilirubin 0.4 (0.2-1.0) mg/dL AST 27 (15-37) IU/L ALT 62 (14-63) IU/L Alkaline Phosphatase 88 (46-116) U/L Total Protein 7.8 (6.4-8.2) g/dL Albumin 3.5 (3.4-5.0) g/dL Globulin 4.3 H (2.6-4.0) g/dL Albumin/Globulin Ratio 0.8 L (0.9-1.6) SARS-CoV-2 RNA (REGINO) NEGATIVE (NEGATIVE) 05/17/20 05/18/20 05/18/20 Range/Units 18:54 06:14 06:14 WBC 9.89 (4.0-11.0) K/uL RBC 4.16 L (4.30-5.90) M/uL Hgb 11.4 L (12.0-16.0) g/dL Hct 35.5 L (36.0-46.0) % MCV 85.3 (80.0-98.0) fL MCH 27.4 (27.0-32.0) pg MCHC 32.1 (31.0-37.0) g/dL RDW Std Deviation 44.3 (28.0-62.0) fl RDW Coeff of Tanvi 14 (11.0-15.0) % Plt Count 363 (150-400) K/uL MPV 8.40 (7.40-12.00) fL Neut % (Auto) 77.3 (48.0-80.0) % Lymph % (Auto) 17.7 (16.0-40.0) % Horry % (Auto) 5.0 (0.0-15.0) % Eos % (Auto) 0.0 (0.0-7.0) % Baso % (Auto) 0.0 (0.0-1.5) % Neut # (Auto) 7.7 H (1.4-5.7) K/uL Lymph # (Auto) 1.8 (0.6-2.4) K/uL Horry # (Auto) 0.5 (0.0-0.8) K/uL Eos # (Auto) 0.0 (0.0-0.7) K/uL Baso # (Auto) 0.0 (0.0-0.1) K/uL Add Manual Diff Neutrophils % (Manual) (48.0-80.0) % Lymphocytes % (Manual) (16.0-40.0) % Monocytes % (Manual) (0.0-15.0) % Eosinophils % (Manual) (0.0-7.0) % Nucleated RBC % 0.0 /100WBC Absolute Seg Neuts (1.4-5.7) Lymphocytes # (Manual) (0.6-2.4) Monocytes # (Manual) (0.0-0.8) Eosinophils # (Manual) (0.0-0.7) Nucleated RBCs # 0 K/uL Sodium 141 (136-145) mmol/L Potassium 4.2 (3.5-5.1) mmol/L Chloride 107 (98-107) mmol/L Carbon Dioxide 26.2 (21.0-32.0) mmol/L BUN 11 (7.0-18.0) mg/dL Creatinine 0.8 (0.6-1.0) mg/dL Est Cr Clr Drug Dosing 78.30 Estimated GFR (MDRD) > 60.0 ml/min Glucose 152 H (74-106) mg/dL POC Glucose 186 H (60-110) mg/dL Calcium 8.5 (8.5-10.1) mg/dL Total Bilirubin (0.2-1.0) mg/dL AST (15-37) IU/L ALT (14-63) IU/L Alkaline Phosphatase (46-116) U/L Total Protein (6.4-8.2) g/dL Albumin (3.4-5.0) g/dL Globulin (2.6-4.0) g/dL Albumin/Globulin Ratio (0.9-1.6) SARS-CoV-2 RNA (REGINO) (NEGATIVE) 05/18/20 Range/Units 06:35 WBC (4.0-11.0) K/uL RBC (4.30-5.90) M/uL Hgb (12.0-16.0) g/dL Hct (36.0-46.0) % MCV (80.0-98.0) fL MCH (27.0-32.0) pg MCHC (31.0-37.0) g/dL RDW Std Deviation (28.0-62.0) fl RDW Coeff of Tanvi (11.0-15.0) % Plt Count (150-400) K/uL MPV (7.40-12.00) fL Neut % (Auto) (48.0-80.0) % Lymph % (Auto) (16.0-40.0) % Horry % (Auto) (0.0-15.0) % Eos % (Auto) (0.0-7.0) % Baso % (Auto) (0.0-1.5) % Neut # (Auto) (1.4-5.7) K/uL Lymph # (Auto) (0.6-2.4) K/uL Horry # (Auto) (0.0-0.8) K/uL Eos # (Auto) (0.0-0.7) K/uL Baso # (Auto) (0.0-0.1) K/uL Add Manual Diff Neutrophils % (Manual) (48.0-80.0) % Lymphocytes % (Manual) (16.0-40.0) % Monocytes % (Manual) (0.0-15.0) % Eosinophils % (Manual) (0.0-7.0) % Nucleated RBC % /100WBC Absolute Seg Neuts (1.4-5.7) Lymphocytes # (Manual) (0.6-2.4) Monocytes # (Manual) (0.0-0.8) Eosinophils # (Manual) (0.0-0.7) Nucleated RBCs # K/uL Sodium (136-145) mmol/L Potassium (3.5-5.1) mmol/L Chloride (98-107) mmol/L Carbon Dioxide (21.0-32.0) mmol/L BUN (7.0-18.0) mg/dL Creatinine (0.6-1.0) mg/dL Est Cr Clr Drug Dosing Estimated GFR (MDRD) ml/min Glucose (74-106) mg/dL POC Glucose 134 H (60-110) mg/dL Calcium (8.5-10.1) mg/dL Total Bilirubin (0.2-1.0) mg/dL AST (15-37) IU/L ALT (14-63) IU/L Alkaline Phosphatase (46-116) U/L Total Protein (6.4-8.2) g/dL Albumin (3.4-5.0) g/dL Globulin (2.6-4.0) g/dL Albumin/Globulin Ratio (0.9-1.6) SARS-CoV-2 RNA (REGINO) (NEGATIVE) Med Orders - Current: Current Medications Acetaminophen (Tylenol) 650 mg PO Q4H PRN PRN Reason: Pain (Mild 1-3)/fever Dextrose/Water (Dextrose 50% In Water) 50 ml IV ASDIRECTED PRN PRN Reason: Hypoglycemia Diphenhydramine HCl (Benadryl) 25 mg IVPUSH Q6H [facility] Last Admin: 05/18/20 08:41 Dose: 25 mg Documented by: Epinephrine HCl (Adrenalin) 0.3 mg IM ASDIRECTED PRN PRN Reason: anaphylaxis Famotidine (Pepcid) 20 mg PO BID [facility] Last Admin: 05/18/20 08:43 Dose: 20 mg Documented by: Glucagon (Glucagen) 1 mg IM ASDIRECTED PRN PRN Reason: Hypoglycemia Lactated Ringer's (Ringers, Lactated) 1,000 mls @ 100 mls/hr IV Q10H [facility] Last Admin: 05/18/20 04:07 Dose: 100 mls/hr Documented by: Insulin Aspart (Novolog) 0 unit SUBCUT TIDAC [facility]; Protocol Last Admin: 05/18/20 10:05 Dose: Not Given Documented by: Loratadine (Claritin) 10 mg PO DAILY [facility] Last Admin: 05/18/20 08:43 Dose: 10 mg Documented by: Methylprednisolone Sodium Succinate (Solu-Medrol) 40 mg IV BID [facility] Last Admin: 05/18/20 08:42 Dose: 40 mg Documented by: Ondansetron HCl (Zofran) 4 mg IVPUSH Q4H PRN PRN Reason: Nausea Sodium Chloride (Saline Flush) 2.5 ml FLUSH ASDIRECTED PRN PRN Reason: Keep Vein Open Discontinued Medications Diphenhydramine HCl (Benadryl) 50 mg IVPUSH ONETIME ONE Stop: 05/17/20 11:08 Last Admin: 05/17/20 11:11 Dose: 50 mg Documented by: Diphenhydramine HCl (Benadryl) 50 mg IVPUSH ONETIME ONE Stop: 05/17/20 15:28 Last Admin: 05/17/20 15:31 Dose: 50 mg Documented by: Epinephrine HCl (Adrenalin) 0.3 mg IM ONETIME ONE Stop: 05/17/20 15:58 Last Admin: 05/17/20 16:19 Dose: 0.3 mg Documented by: Epinephrine HCl (Adrenalin) 0.3 mg IM ONETIME ONE Stop: 05/17/20 16:18 Last Admin: 05/17/20 16:23 Dose: Not Given Documented by: Famotidine (Pepcid) Confirm Administered Dose 20 mg .ROUTE .STK-MED ONE Stop: 05/17/20 11:03 Last Admin: 05/17/20 11:11 Dose: Not Given Documented by: Famotidine (Pepcid) 20 mg IVPUSH ONETIME ONE Stop: 05/17/20 11:04 Last Admin: 05/17/20 11:11 Dose: 20 mg Documented by: Famotidine (Pepcid) 20 mg IVPUSH ONETIME ONE Stop: 05/17/20 16:06 Last Admin: 05/17/20 16:26 Dose: 20 mg Documented by: Lactated Ringer's (Ringers, Lactated) 1,000 mls @ 999 mls/hr IV .BOLUS [facility] Last Admin: 05/17/20 11:14 Dose: 999 mls/hr Documented by: Lactated Ringer's (Ringers, Lactated) 1,000 mls @ 999 mls/hr IV .BOLUS ONE Stop: 05/17/20 16:56 Last Admin: 05/17/20 16:15 Dose: 999 mls/hr Documented by: Insulin Aspart (Novolog) 0 unit SUBCUT TIDAC [facility]; Protocol Methylprednisolone Sodium Succinate (Solu-Medrol) Confirm Administered Dose 125 mg .ROUTE .STK-MED ONE Stop: 05/17/20 11:03 Last Admin: 05/17/20 11:12 Dose: Not Given Documented by: Methylprednisolone Sodium Succinate (Solu-Medrol) 125 mg IVPUSH ONETIME ONE Stop: 05/17/20 11:04 Last Admin: 05/17/20 11:11 Dose: 125 mg Documented by: Methylprednisolone Sodium Succinate (Solu-Medrol) 40 mg IVPUSH ONETIME ONE Stop: 05/17/20 16:06 Last Admin: 05/17/20 16:21 Dose: 40 mg Documented by: <Michael Wall - Last Filed: 05/19/20 14:27> Discharge Summary - Hospital Course Free Text/Narrative:: I have seen and evaluated the patient and agree with the residents note unless specified in my note . - Referral to Home Health Primary Care Physician: PCP None - Patient Data Vitals - Most Recent: Last Vital Signs Temp 36.9 C 05/18/20 08:00 Pulse 86 05/18/20 08:00 Resp 16 05/18/20 08:00 BP 143/92 H 05/18/20 08:00 Pulse Ox 100 05/18/20 08:00 I&O - Last 24 hours: Intake & Output 05/18/20 05/19/20 05/19/20 22:59 06:59 14:59 Intake Total 880 Output Total 2450 Balance -1570 Med Orders - Current: Current Medications Discontinued Medications Acetaminophen (Tylenol) 650 mg PO Q4H PRN PRN Reason: Pain (Mild 1-3)/fever Last Admin: 05/18/20 10:59 Dose: 650 mg Documented by: Dextrose/Water (Dextrose 50% In Water) 50 ml IV ASDIRECTED PRN PRN Reason: Hypoglycemia Diphenhydramine HCl (Benadryl) 50 mg IVPUSH ONETIME ONE Stop: 05/17/20 11:08 Last Admin: 05/17/20 11:11 Dose: 50 mg Documented by: Diphenhydramine HCl (Benadryl) 50 mg IVPUSH ONETIME ONE Stop: 05/17/20 15:28 Last Admin: 05/17/20 15:31 Dose: 50 mg Documented by: Diphenhydramine HCl (Benadryl) 25 mg IVPUSH Q6H [facility] Last Admin: 05/18/20 15:33 Dose: 25 mg Documented by: Epinephrine HCl (Adrenalin) 0.3 mg IM ONETIME ONE Stop: 05/17/20 15:58 Last Admin: 05/17/20 16:19 Dose: 0.3 mg Documented by: Epinephrine HCl (Adrenalin) 0.3 mg IM ONETIME ONE Stop: 05/17/20 16:18 Last Admin: 05/17/20 16:23 Dose: Not Given Documented by: Epinephrine HCl (Adrenalin) 0.3 mg IM ASDIRECTED PRN PRN Reason: anaphylaxis Famotidine (Pepcid) Confirm Administered Dose 20 mg .ROUTE .STK-MED ONE Stop: 05/17/20 11:03 Last Admin: 05/17/20 11:11 Dose: Not Given Documented by: Famotidine (Pepcid) 20 mg IVPUSH ONETIME ONE Stop: 05/17/20 11:04 Last Admin: 05/17/20 11:11 Dose: 20 mg Documented by: Famotidine (Pepcid) 20 mg IVPUSH ONETIME ONE Stop: 05/17/20 16:06 Last Admin: 05/17/20 16:26 Dose: 20 mg Documented by: Famotidine (Pepcid) 20 mg PO BID [facility] Last Admin: 05/18/20 08:43 Dose: 20 mg Documented by: Glucagon (Glucagen) 1 mg IM ASDIRECTED PRN PRN Reason: Hypoglycemia Lactated Ringer's (Ringers, Lactated) 1,000 mls @ 999 mls/hr IV .BOLUS [facility] Last Admin: 05/17/20 11:14 Dose: 999 mls/hr Documented by: Lactated Ringer's (Ringers, Lactated) 1,000 mls @ 999 mls/hr IV .BOLUS ONE Stop: 05/17/20 16:56 Last Admin: 05/17/20 16:15 Dose: 999 mls/hr Documented by: Lactated Ringer's (Ringers, Lactated) 1,000 mls @ 100 mls/hr IV Q10H [facility] Last Admin: 05/18/20 04:07 Dose: 100 mls/hr Documented by: Insulin Aspart (Novolog) 0 unit SUBCUT TIDAC [facility]; Protocol Insulin Aspart (Novolog) 0 unit SUBCUT TIDAC [facility]; Protocol Last Admin: 05/18/20 14:10 Dose: Not Given Documented by: Loratadine (Claritin) 10 mg PO DAILY [facility] Last Admin: 05/18/20 08:43 Dose: 10 mg Documented by: Methylprednisolone Sodium Succinate (Solu-Medrol) Confirm Administered Dose 125 mg .ROUTE .STK-MED ONE Stop: 05/17/20 11:03 Last Admin: 05/17/20 11:12 Dose: Not Given Documented by: Methylprednisolone Sodium Succinate (Solu-Medrol) 125 mg IVPUSH ONETIME ONE Stop: 05/17/20 11:04 Last Admin: 05/17/20 11:11 Dose: 125 mg Documented by: Methylprednisolone Sodium Succinate (Solu-Medrol) 40 mg IVPUSH ONETIME ONE Stop: 05/17/20 16:06 Last Admin: 05/17/20 16:21 Dose: 40 mg Documented by: Methylprednisolone Sodium Succinate (Solu-Medrol) 40 mg IV BID [facility] Last Admin: 05/18/20 08:42 Dose: 40 mg Documented by: Ondansetron HCl (Zofran) 4 mg IVPUSH Q4H PRN PRN Reason: Nausea Sodium Chloride (Saline Flush) 2.5 ml FLUSH ASDIRECTED PRN PRN Reason: Keep Vein Open
[2020-05-18] MEDS ORDERED: Insulin Aspart 100 Units/ML 3 ML Pen SUBCUT SCH (17:30)
== END 2020-05-18 15:45 | disposition home or self-care (01) ==
LOC: MW.ED 10:54 → MW.MS 16:09
PROVIDERS: ADMIT Student in an Organized Health Care Education/Training Program; ATTEND Student in an Organized Health Care Education/Training Program
DX: T78.40XA Allergy, unspecified, initial encounter (principal); L80 Vitiligo; R60.0 Localized edema; L29.9 Pruritus, unspecified; E11.9 Type 2 diabetes mellitus without complications; R21 Rash and other nonspecific skin eruption; J45.909 Unspecified asthma, uncomplicated; E66.9 Obesity, unspecified; Z68.35 Body mass index [BMI] 35.0-35.9, adult; Z20.822 Contact with and (suspected) exposure to COVID-19; Z88.0 Allergy status to penicillin; Z88.6 Allergy status to analgesic agent; Z91.09 Other allergy status, other than to drugs and biological substances; Z88.8 Allergy status to other drugs, medicaments and biological substances; Z79.84 Long term (current) use of oral hypoglycemic drugs; Z79.899 Other long term (current) drug therapy; Z98.890 Other specified postprocedural states
CPT/HCPCS: 36415; 80048; 80053; 82962; 85025; 87635; 96372; 96374; 96375; 96376; 99285; A9270; J0171; J1200; J2920; J2930; J3490; J7120; 99217; 99218; G0378; J1815-GY; U0002

== ENCOUNTER 2020-12-14 23:23 | Emergency (ER) | payer SELFPAY ==
[2020-12-14] MEDS ORDERED: Ondansetron 4 MG/2 ML SDV ONE (23:33)
[2020-12-14] MEDS ORDERED: Famotidine 20 MG/2 ML SDV ONE (23:34)
[2020-12-14] MEDS ORDERED: methylPREDNISolone Sodium Succinate 125 MG/2 ML SDV ONE (23:34)
[2020-12-14] MEDS ORDERED: Ondansetron 4 MG/2 ML SDV IVPUSH ONE (23:39)
[2020-12-14] MEDS ORDERED: methylPREDNISolone Sodium Succinate 125 MG/2 ML SDV IM ONE (23:39)
[2020-12-14] MEDS ORDERED: methylPREDNISolone Sodium Succinate 125 MG/2 ML SDV IVPUSH ONE (23:46)
[2020-12-14] MEDS ORDERED: Famotidine 20 MG/2 ML SDV IVPUSH ONE (23:51)
--- NOTE | 2020-12-15 01:49 | EDM.PDOC ---
ED HPI GENERAL MEDICAL PROBLEM - General Chief Complaint: Respiratory Problem Stated Complaint: DIFFICULTY BREATHING Time Seen by Provider: 12/14/20 23:43 - History of Present Illness INITIAL COMMENTS - FREE TEXT/NARRATIVE: CHIEF COMPLAINT(S): Allergic Reaction HISTORY OF PRESENT ILLNESS: HISTORY OF PRESENT ILLNESS: This is a 45-year-old and with a past medical history of anaphylaxis and Vonda's thyroiditis who comes to the emergency department with a chief complaint of allergic reaction. The patient does not know any known triggers however prior to arrival she started to feel some trouble breathing for which she gave herself on epi pen injection. She denies any throat swelling, tongue swelling, drooling, voice changes. She denies any abdominal pain, rash, itchy. She denies any chest pain or wheezing. She was given 50mg of benadryl en route. REVIEW OF SYSTEMS: Constitutional: Denies fever, chills. Eyes: Denies eye pain Ears, Nose, Mouth, & Throat: Denies earache Cardiovascular: Denies chest pain Respiratory: Positive for shortness of breath Gastrointestinal: Denies Nausea, vomiting, diarrhea, hematochezia. Genitourinary: Denies hematuria Skin:Denies a rash MSK: Denies joint pain Neurological: Denies blurred vision Psychiatric: Denies depression PAST MEDICAL HISTORY: As per history of present illness and as reviewed below otherwise noncontributory. SURGICAL HISTORY: As per history of present illness and as reviewed below otherwise noncontributory. SOCIAL HISTORY: As per history of present illness and as reviewed below otherwise noncontributory. FAMILY HISTORY: As per history of present illness and as reviewed below otherwise noncontributory. EXAMINATION OF ORGAN SYSTEMS/BODY AREAS: Constitutional: Blood Pressure 157/77, HR 101, RR 24 with on oxygen saturation of 100% on room air. Temp 36.8 General: Well appearing woman in NAD Psychiatric: Appropriate mood and affect. Mildy anxious Eyes: No scleral icterus or conjunctival erythema ENMT: Moist mucous membranes. No pharyngeal erythema no uvula swelling no tongue swelling. No drooling, trismus or stridor. Cardiovascular: Regular, rate, and rhythm. No gallops, murmurs, or rubs. Bilateral upper extremity pulses symmetric and intact. No peripheral edema. No JVD. Respiratory: Lungs clear to auscultation bilaterally. No wheezes, rales, or rhonchi. Gastrointestinal: Soft, non-tender, non-distended. Normoactive bowel sounds Genitourinary: No suprapubic tenderness 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: Normal range of motion. Skin: No lesions or abrasions. Neurological: Alert, GCS 15 MEDICAL DECISION MAKING AND COURSE IN THE ED WITH INTERPRETATION/REVIEW OF DIAGNOSTIC STUDIES: This is a 45-year-old woman with a past medical history of anaphylaxis and Vonda's thyroiditis who presents to the emergency department with shortness of breath after unknown exposure. The patient has received EpiPen in route and Benadryl. There is no signs of airway compromise or anaphylaxis at this time. We will provide the patient with Solu-Medrol, Zofran, and famotidine. We will place the patient on cardiac monitoring and pulse oximetry and continue to monitor the patient for resurgence of her symptoms. The pain is able to tolerate p.o. without any difficulty and was observed in the emergency department out any further worsening of her allergic reaction. I did discuss strict return precautions with the patient. She was amenable to discharge and had no further questions. DISPOSITION: The patient was discharged home in stable condition. The patient will follow up with primary care physician in 3 to 5 days CONDITION: Fair PROCEDURES: None FINAL IMPRESSION(S)/DIAGNOSES: 1. Acute shortness of breath, possible allergic reaction Montrell Perez M.D. - Related Data Allergies Allergy/AdvReac Type Severity Reaction Status Date / Time codeine Allergy Abdominal Verified 12/18/20 10:45 Pain metoclopramide Allergy Other Verified 12/18/20 10:45 Penicillins Allergy Other Verified 12/18/20 10:45 Phenothiazines Allergy Other Verified 12/18/20 10:45 dust Allergy Hives Uncoded 12/18/20 10:45 dustmites Allergy Itching Uncoded 12/18/20 10:45 housemites Allergy Itching Uncoded 12/18/20 10:45 Home Meds: Home Meds metFORMIN [Glucophage] 500 mg PO BID 02/18/18 [History] EPINEPHrine [Epipen 2-Homer] 0.3 mg IJ ONETIME PRN #1 applic 05/17/20 [Rx] Famotidine [Pepcid AC] 20 mg PO BID 5 Days #10 tablet 05/17/20 [Rx] Loratadine 10 mg PO DAILY 05/17/20 [History] diphenhydrAMINE [Benadryl] 50 mg PO Q6HR PRN #20 cap 05/17/20 [Rx] predniSONE [Prednisone] 50 mg PO DAILY #5 tablet 05/17/20 [Rx] EPINEPHrine [Epipen] 0.3 mg IM ASDIRECTED PRN 06/08/20 [History] Famotidine 20 mg PO BID 06/08/20 [History] Loratadine 10 mg PO BID 06/08/20 [History] metFORMIN [Glucophage XR] 500 mg PO BID 06/08/20 [History] Montelukast Sodium 10 mg PO BEDTIME 07/27/20 [History] EPINEPHrine [Epipen] 0.3 mg IM ASDIRECTED #0.3 ml 12/15/20 [Rx] Past Medical History Endocrine/Metabolic History: Reports: Diabetes, Type II, Hypothyroidism - Infectious Disease History Infectious Disease History: Reports: None - Past Surgical History Head Surgeries/Procedures: Reports: None Social & Family History - Family History Family Medical History: No Pertinent Family History - Tobacco Use Tobacco Use Status *Q: Never Tobacco User - Caffeine Use Caffeine Use: Reports: None - Recreational Drug Use Recreational Drug Use: No ED ROS GENERAL - Review of Systems Review Of Systems: See Below ED EXAM, GENERAL - Physical Exam Exam: See Below Course - Vital Signs Last Recorded V/S: Last Vital Signs Temp 36.8 C 12/14/20 23:27 Pulse 107 H 12/15/20 02:36 Resp 18 12/15/20 02:36 BP 135/81 12/15/20 02:36 Pulse Ox 95 12/15/20 02:36 - Orders/Labs/Meds Meds: Medications Discontinued Medications Generic Name Dose Route Start Last Admin Trade Name Freq PRN Reason Stop Dose Admin Famotidine Confirm 12/14/20 23:34 12/14/20 23:46 Famotidine 20 Mg/2 Ml Sdv Administered 12/14/20 23:35 Not Given Dose 40 mg .ROUTE .STK-MED ONE Famotidine 40 mg 12/14/20 23:51 12/14/20 23:54 Famotidine 20 Mg/2 Ml Sdv IVPUSH 12/14/20 23:52 40 mg ONETIME ONE Administration Methylprednisolone Sodium Succinate Confirm 12/14/20 23:34 12/14/20 23:44 Methylprednisolone Sodium Succinate 125 Mg/2 Ml Sdv Administered 12/14/20 23:35 Not Given Dose 125 mg .ROUTE .STK-MED ONE Methylprednisolone Sodium Succinate 125 mg 12/14/20 23:39 12/14/20 23:44 Methylprednisolone Sodium Succinate 125 Mg/2 Ml Sdv IM 12/14/20 23:40 Not Given ONETIME ONE Methylprednisolone Sodium Succinate 125 mg 12/14/20 23:46 12/14/20 23:47 Methylprednisolone Sodium Succinate 125 Mg/2 Ml Sdv IVPUSH 12/14/20 23:47 125 mg ONETIME ONE Administration Ondansetron HCl Confirm 12/14/20 23:33 12/14/20 23:44 Ondansetron 4 Mg/2 Ml Sdv Administered 12/14/20 23:34 Not Given Dose 4 mg .ROUTE .STK-MED ONE Ondansetron HCl 4 mg 12/14/20 23:39 12/14/20 23:44 Ondansetron 4 Mg/2 Ml Sdv IVPUSH 12/14/20 23:40 4 mg ONETIME ONE Administration Departure - Departure Time of Disposition: 01:48 Disposition: Home, Self-Care 01 Condition: Fair Clinical Impression: Allergic reaction - Discharge Information *PRESCRIPTION DRUG MONITORING PROGRAM REVIEWED*: No *COPY OF PRESCRIPTION DRUG MONITORING REPORT IN PATIENT DILIP: No Prescriptions: EPINEPHrine [Epipen] 0.3 mg IM ASDIRECTED #0.3 ml Instructions: Allergies, Adult, [id number] Referrals: PCP,None [Primary Care Provider] - Forms: ED Department Discharge Additional Instructions: You were evaluated today on an emergent basis. At this time during your observation you continue to remain stable. I recommend that you continue to monitor your symptoms and if you have any worsening symptoms please return to the emergency department. Otherwise please follow-up with your primary care physician within 3 to 5 days. [facility] [address] [place] [id number] [facility] [address] [place] [id number] The patient is informed of any results of their evaluation and diagnostic workup and all questions are answered. They are given discharge instructions and return precautions. The patient is stable for discharge. The patient states they understand and agree with the plan and that they will return if their symptoms get worse or if they have any new concerns. The following information is given to patients seen in the emergency department who are being discharged to home. This information is to outline your options for follow-up care. We provide all patients seen in our emergency department with a follow-up referral. The need for follow-up, as well as the timing and circumstances, are variable depending upon the specifics of your emergency department visit. If you don't have a primary care physician on staff, we will provide you with a referral. We always advise you to contact your personal physician following an emergency department visit to inform them of the circumstance of the visit and for follow-up with them and/or the need for any referrals to a consulting specialist. The emergency department will also refer you to a specialist when appropriate. This referral assures that you have the opportunity for follow-up care with a specialist. All of these measure are taken in an effort to provide you with optimal care, which includes your follow-up. Under all circumstances we always encourage you to contact your private physician who remains a resource for coordinating your care. When calling for follow-up care, please make the office aware that this follow-up is from your recent emergency room visit. If for any reason you are refused follow-up, please contact the [facility] at and asked to speak to the emergency department charge nurse.
[2020-12-15 02:38] VITALS: BP 135/81; PULSE 107
== END 2020-12-15 02:38 | disposition home or self-care (01) ==
LOC: EDBD 23:23 → MW.ED 23:23 → MERGE 23:23 → MW.ED 12-15 02:38
DX: T78.40XA Allergy, unspecified, initial encounter (principal); R06.02 Shortness of breath; E11.9 Type 2 diabetes mellitus without complications; Z88.5 Allergy status to narcotic agent; Z88.0 Allergy status to penicillin; Z88.8 Allergy status to other drugs, medicaments and biological substances; Z91.048 Other nonmedicinal substance allergy status; Z79.84 Long term (current) use of oral hypoglycemic drugs; Z79.899 Other long term (current) drug therapy
CPT/HCPCS: 96374; 96375; 99284; J2405; J2930; J3490

== ENCOUNTER 2021-06-07 19:28 | Emergency (ER) | payer SELFPAY ==
[2021-06-07] MEDS ORDERED: Ketorolac 30 MG/ML SDV IVPUSH ONE (19:51)
[2021-06-07] MEDS ORDERED: Ondansetron 4 MG/2 ML SDV IVPUSH ONE (19:51)
[2021-06-07] MEDS ORDERED: Sodium Chloride 0.9% 1,000 ML IV SCH (20:00)
[2021-06-07] MEDS ORDERED: Sodium Chloride 0.9% 1,000 ML IV STA (20:02)
[2021-06-07 20:38] LABS: BLOOD UREA NITROGEN,BUN 13 mg/dL (7.0-18.0); CARBON DIOXIDE,CO2 29.2 mmol/L (21.0-32.0); CHLORIDE,CL 101 mmol/L (98-107); GLUCOSE RANDOM 99 mg/dL (74-106); LIPASE 64 U/L (73-393); POTASSIUM,K 3.8 mmol/L (3.5-5.1); SODIUM,NA 138 mmol/L (136-145)
[2021-06-07 21:06] VITALS: BP 184/84; PULSE 66
== END 2021-06-07 21:06 | disposition home or self-care (01) ==
LOC: MW.ED 19:28
DX: R10.11 Right upper quadrant pain (principal); E11.9 Type 2 diabetes mellitus without complications; Z79.84 Long term (current) use of oral hypoglycemic drugs; Z88.0 Allergy status to penicillin; Z88.5 Allergy status to narcotic agent; Z91.09 Other allergy status, other than to drugs and biological substances; Z88.8 Allergy status to other drugs, medicaments and biological substances
CPT/HCPCS: 36415; 80053; 81003; 83690; 84703; 85025; 96374; 96375; 99284; J1885; J2405; J7030; 99283

== ENCOUNTER 2021-07-22 22:40 | Emergency (ER) | payer SELFPAY ==
[2021-07-22] MEDS ORDERED: methylPREDNISolone Sodium Succinate 125 MG/2 ML SDV IVPUSH ONE (23:03)
[2021-07-22] MEDS ORDERED: Famotidine 20 MG/2 ML SDV IVPUSH ONE (23:03)
[2021-07-22] MEDS ORDERED: Ondansetron 4 MG/2 ML SDV IVPUSH ONE (23:03)
[2021-07-22] MEDS ORDERED: diphenhydrAMINE 50 MG/ML SDV IVPUSH ONE (23:03)
[2021-07-23 00:37] VITALS: BP 142/77; PULSE 73
== END 2021-07-23 00:59 | disposition home or self-care (01) ==
LOC: MW.ED 22:40
DX: T78.40XA Allergy, unspecified, initial encounter (principal); E11.9 Type 2 diabetes mellitus without complications; E03.9 Hypothyroidism, unspecified; K21.9 Gastro-esophageal reflux disease without esophagitis; Z88.5 Allergy status to narcotic agent; Z88.0 Allergy status to penicillin; Z88.8 Allergy status to other drugs, medicaments and biological substances; Z79.84 Long term (current) use of oral hypoglycemic drugs; Z79.899 Other long term (current) drug therapy
CPT/HCPCS: 96374; 96375; 99283-25; J1200; J2405; J2930; J3490

== ENCOUNTER 2021-12-22 12:50 | Emergency (ER) | payer SELFPAY ==
[~2021-12-22 12:50] MED LIST: Famotidine 20 MG/2 ML SDV IV ONE; Sodium Chloride 0.9% 1,000 ML IV ONE; diphenhydrAMINE 50 MG/ML SDV IV ONE; methylPREDNISolone Sodium Succinate 125 MG/2 ML SDV IV ONE
== END 2021-12-24 03:07 | disposition home or self-care (01) ==
LOC: MW.ED 12:50
DX: T78.40XA Allergy, unspecified, initial encounter (principal); E11.9 Type 2 diabetes mellitus without complications; Z88.8 Allergy status to other drugs, medicaments and biological substances; Z79.84 Long term (current) use of oral hypoglycemic drugs; Z90.49 Acquired absence of other specified parts of digestive tract; Z90.89 Acquired absence of other organs
CPT/HCPCS: 96374; 96375; 99283; J1200; J2930; J3490; J7030

== ENCOUNTER 2022-06-01 19:27 | Emergency (ER) | payer SELFPAY ==
[2022-06-01] MEDS ORDERED: diphenhydrAMINE 50 MG/ML SDV IVPUSH ONE (19:41)
[2022-06-01] MEDS ORDERED: Famotidine 20 MG Tab PO ONE (19:41)
[2022-06-01] MEDS ORDERED: methylPREDNISolone Sodium Succinate 40 MG/1 ML SDV IVPUSH ONE (19:41)
[2022-06-02 05:24] VITALS: BP 132/74; PULSE 75
== END 2022-06-01 20:49 | disposition home or self-care (01) ==
LOC: MW.ED 19:27
DX: D89.40 Mast cell activation, unspecified (principal); K21.9 Gastro-esophageal reflux disease without esophagitis; J45.909 Unspecified asthma, uncomplicated; E11.9 Type 2 diabetes mellitus without complications; Z88.5 Allergy status to narcotic agent; Z88.8 Allergy status to other drugs, medicaments and biological substances; Z88.0 Allergy status to penicillin; Z91.048 Other nonmedicinal substance allergy status; Z79.84 Long term (current) use of oral hypoglycemic drugs; Z79.899 Other long term (current) drug therapy
CPT/HCPCS: 96374; 96375; 99282; A9270; J1200; J2920; 99284

== ENCOUNTER 2022-06-08 22:04 | Emergency (ER) | payer SELFPAY ==
[2022-06-08] MEDS ORDERED: methylPREDNISolone Sodium Succinate 125 MG/2 ML SDV IVPUSH ONE (22:06)
[2022-06-08] MEDS ORDERED: Famotidine 20 MG/2 ML SDV IVPUSH ONE (22:06)
[2022-06-08] MEDS ORDERED: diphenhydrAMINE 50 MG/ML SDV IVPUSH ONE ×2 (22:06→23:12)
[2022-06-08] MEDS ORDERED: diphenhydrAMINE 50 MG/ML SDV ONE (22:07)
[2022-06-08] MEDS ORDERED: methylPREDNISolone Sodium Succinate 125 MG/2 ML SDV ONE (22:08)
[2022-06-08] MEDS ORDERED: Famotidine 20 MG/2 ML SDV ONE (22:08)
[2022-06-08] MEDS ORDERED: Cetirizine 10 MG Tab PO ONE (23:12)
[2022-06-08 23:22] VITALS: BP 162/93
[2022-06-09 00:12] VITALS: PULSE 89
== END 2022-06-09 00:10 | disposition home or self-care (01) ==
LOC: MW.ED 22:04
DX: D89.40 Mast cell activation, unspecified (principal); J45.909 Unspecified asthma, uncomplicated; K21.9 Gastro-esophageal reflux disease without esophagitis; E11.9 Type 2 diabetes mellitus without complications; Z88.5 Allergy status to narcotic agent; Z88.8 Allergy status to other drugs, medicaments and biological substances; Z88.0 Allergy status to penicillin; Z91.048 Other nonmedicinal substance allergy status; Z79.899 Other long term (current) drug therapy; Z79.84 Long term (current) use of oral hypoglycemic drugs
CPT/HCPCS: 96365; 96375; 99284; A9270; J1200; J2930; J3490

== ENCOUNTER 2022-06-20 14:18 | Emergency (ER) | payer SELFPAY ==
[2022-06-20] MEDS ORDERED: Sodium Chloride 0.9% 2.5 ML Syringe FLUSH PRN (14:31)
[2022-06-20] MEDS ORDERED: diphenhydrAMINE 50 MG/ML SDV IVPUSH ONE (14:31)
[2022-06-20] MEDS ORDERED: Sodium Chloride 0.9% 10 ML Syringe FLUSH PRN (14:31)
[2022-06-20] MEDS ORDERED: Famotidine 20 MG/2 ML SDV IVPUSH ONE (14:32)
[2022-06-20] MEDS ORDERED: Cetirizine 10 MG Tab PO ONE (14:32)
[2022-06-20] MEDS ORDERED: methylPREDNISolone Sodium Succinate 125 MG/2 ML SDV IVPUSH ONE (14:33)
[2022-06-20] MEDS ORDERED: methylPREDNISolone Sodium Succinate 40 MG/1 ML SDV IVPUSH ONE (14:35)
[2022-06-20 16:08] VITALS: BP 153/85; PULSE 82
== END 2022-06-20 16:07 | disposition home or self-care (01) ==
LOC: MW.ED 14:18
DX: D89.40 Mast cell activation, unspecified (principal); J45.909 Unspecified asthma, uncomplicated; E11.9 Type 2 diabetes mellitus without complications; E03.9 Hypothyroidism, unspecified; Z88.5 Allergy status to narcotic agent; Z88.0 Allergy status to penicillin; Z91.048 Other nonmedicinal substance allergy status; Z88.8 Allergy status to other drugs, medicaments and biological substances; Z79.84 Long term (current) use of oral hypoglycemic drugs
CPT/HCPCS: 96374; 96375; 99283; A9270; J1200; J2920; J3490; 99284

== ENCOUNTER 2022-07-12 15:07 | Emergency (ER) | payer SELFPAY ==
[2022-07-12] MEDS ORDERED: methylPREDNISolone Sodium Succinate 125 MG/2 ML SDV IVPUSH STA (15:12)
[2022-07-12] MEDS ORDERED: diphenhydrAMINE 50 MG/ML SDV IVPUSH STA (15:12)
[2022-07-12] MEDS ORDERED: Famotidine 20 MG/2 ML SDV IVPUSH STA (15:12)
[2022-07-12] MEDS ORDERED: diphenhydrAMINE 50 MG/ML SDV IVPUSH ONE (15:12)
[2022-07-12] MEDS ORDERED: Famotidine 20 MG/2 ML SDV IVPUSH ONE (15:12)
[2022-07-12] MEDS ORDERED: methylPREDNISolone Sodium Succinate 125 MG/2 ML SDV IVPUSH ONE (15:12)
[2022-07-12] MEDS ORDERED: Sodium Chloride 0.9% 1,000 ML IV STA (15:30)
[2022-07-12] MEDS ORDERED: Sodium Chloride 0.9% 2.5 ML Syringe FLUSH PRN (15:30)
[2022-07-12] MEDS ORDERED: Sodium Chloride 0.9% 10 ML Syringe FLUSH PRN (15:30)
[2022-07-12 19:09] VITALS: BP 150/89; PULSE 89
== END 2022-07-12 17:52 | disposition home or self-care (01) ==
LOC: MW.ED 15:07
DX: D89.40 Mast cell activation, unspecified (principal); J45.909 Unspecified asthma, uncomplicated; K21.9 Gastro-esophageal reflux disease without esophagitis; E11.9 Type 2 diabetes mellitus without complications; E03.9 Hypothyroidism, unspecified; Z88.5 Allergy status to narcotic agent; Z88.8 Allergy status to other drugs, medicaments and biological substances; Z88.0 Allergy status to penicillin; Z91.048 Other nonmedicinal substance allergy status; Z79.84 Long term (current) use of oral hypoglycemic drugs; Z79.899 Other long term (current) drug therapy
CPT/HCPCS: 96361; 96374; 96375; 99283; J1200; J2930; J3490; J7030; 99284

== ENCOUNTER 2022-07-22 18:13 | Emergency (ER) | payer SELFPAY ==
[2022-07-22] MEDS ORDERED: diphenhydrAMINE 50 MG/ML SDV IVPUSH ONE (19:22)
[2022-07-22] MEDS ORDERED: Ketorolac 30 MG/ML SDV IVPUSH ONE (19:22)
[2022-07-22] MEDS ORDERED: Sodium Chloride 0.9% 1,000 ML IV ONE (19:22)
[2022-07-22] MEDS ORDERED: Ondansetron 4 MG/2 ML SDV IVPUSH ONE (19:23)
[2022-07-22 20:25] LABS: BASOPHILS PERCENT AUTO 0.3 % (0.0-1.5); EOSINOPHILS ABSOLUTE AUTO 0.2 K/uL (0.0-0.7); EOSINOPHILS PERCENT AUTO 1.7 % (0.0-7.0); HEMOGLOBIN 13.1 g/dL (12.0-16.0); LYMPHOCYTES ABSOLUTE AUTO 1.5 K/uL (0.6-2.4); LYMPHOCYTES PERCENT AUTO 10.5 % (16.0-40.0); MEAN CORPUSCULAR HEMOGLOBIN 28.7 pg (27.0-32.0); MEAN CORPUSCULAR HGB CONC 32.8 g/dL (31.0-37.0); MEAN CORPUSCULAR VOLUME 87.5 fL (80.0-98.0); MONOCYTES ABSOLUTE AUTO 1.3 K/uL (0.0-0.8); MONOCYTES PERCENT AUTO 9.6 % (0.0-15.0); NEUTROPHILS ABSOLUTE AUTO 10.8 K/uL (1.4-5.7); NEUTROPHILS PERCENT AUTO 77.9 % (48.0-80.0); PLATELET COUNT,PLT 374 K/uL (150-400); RED BLOOD CELL COUNT 4.57 M/uL (4.30-5.90); WHITE BLOOD CELL COUNT,WBC 13.91 K/uL (4.0-11.0)
[2022-07-22 21:10] LABS: A/G RATIO 0.7 (0.9-1.6); ALBUMIN 3.2 g/dL (3.4-5.0); BILIRUBIN TOTAL 0.8 mg/dL (0.2-1.0); CALCIUM 8.6 mg/dL (8.5-10.1); CREATININE 0.8 mg/dL (0.6-1.0); EST CRCL DRUG DOSING (CG) 79.91 mL/min; POTASSIUM,K 4.3 mmol/L (3.5-5.1); PROTEIN TOTAL,TP 7.8 g/dL (6.4-8.2)
[2022-07-22 21:13] LABS: C-REACTIVE PROTEIN 16.3 mg/dL (0.00-0.90)
[2022-07-22 21:40] LABS: LACTIC ACID 0.7 mmol/L (0.4-2.0)
[2022-07-22] MEDS ORDERED: Haloperidol Lactate 5 MG/ML SDV IM STA (22:27)
[2022-07-22] MEDS ORDERED: Iopamidol 755 MG/ML 500 ML Multipack Bottle IVPUSH STA (23:09)
[2022-07-23 01:27] VITALS: BP 162/83; PULSE 101
== END 2022-07-23 01:25 | disposition home or self-care (01) ==
LOC: MW.ED 18:13
DX: R11.10 Vomiting, unspecified (principal); J45.909 Unspecified asthma, uncomplicated; K21.9 Gastro-esophageal reflux disease without esophagitis; E11.9 Type 2 diabetes mellitus without complications; E66.9 Obesity, unspecified; Z68.34 Body mass index [BMI] 34.0-34.9, adult; Z88.5 Allergy status to narcotic agent; Z88.8 Allergy status to other drugs, medicaments and biological substances; Z88.0 Allergy status to penicillin; Z91.048 Other nonmedicinal substance allergy status; Z79.84 Long term (current) use of oral hypoglycemic drugs; Z79.899 Other long term (current) drug therapy
CPT/HCPCS: 36415; 71045; 74177; 80053; 83605; 85025; 86140; 96361; 96372; 96374; 96375; 99284; J1200; J1630; J1885; J2405; J7030; Q9967